=== PATIENT | male | born 1945 | race Caucasian/White ===

== ENCOUNTER 2021-11-16 08:18 | Emergency (ER) | payer MEDICARE, SELFPAY ==
--- NOTE | ~2021-11-16 | XR_ITS ---
XR chest 1V portable DATE: 11/16/2021 09:43 INDICATION: Headache TECHNIQUE: Portable AP chest views on 11/16/2021 at 0 [id number] hours COMPARISON: None FINDINGS: Heart size appears normal. Is mild aortic unfolding. No hilar or mediastinal enlargement. N o pulmonary infiltrate or consolidation, pleural effusion or pulmonary vascular congestion or pneumot horax is detected. There is mild dextroscoliosis of the thoracic spine and degenerative spurring. IMPRESSION: No active cardiopulmonary disease Reviewed, dictated and finalized at location [facility]. A CLERK
--- NOTE | ~2021-11-16 | CT_ITS ---
EXAMINATION: CT brain wo con DATE: 11/16/2021 09:43 INDICATION: Headache. Numbness of fingers. TECHNIQUE: Computed tomography (CT) of the head was performed without intravenous contrast. The mA wa s adjusted according to patient size. Iterative reconstruction technique was employed. Exam dose: 60 5.33 mGy-cm total exam DLP. COMPARISON: None FINDINGS: Vertebral, basilar and bilateral carotid siphon and supraclinoid internal carotid artery ca lcifications. There is nonspecific patchy diminished attenuation of the cerebral white matter, likely due to chroni c small vessel ischemic changes. No intracranial mass lesion or hemorrhage or recent cerebrovascular accident is evident. No midline s hift or mass effect effect. No subdural or epidural hematoma. No fracture or bone destruction of the cranial vault. Mastoid air cells and included paranasal sinuse s are normally developed and aerated. IMPRESSION: Cerebral atherosclerosis and chronic small vessel ischemic changes of the cerebral white matter No acute intracranial finding Reviewed, dictated and finalized at [facility]. Reviewed, dictated and finalized at location [facility]. L HOLE FINISH OPENER
[2021-11-16 08:52] VITALS: BP 191/87; PULSE 74; RESP 20; TEMP 35.7; O2SAT 96
--- NOTE | 2021-11-16 08:59 | ECG_ITS ---
Measurements Intervals [place] Rate: 67 P: 38 OK: 152 QRS: 34 QRSD: 106 T: 1 QT: 399 QTc: 424 Interpretive Statements SINUS RHYTHM BORDERLINE ST-T WAVE ABNORMALITY- INFERIOR LEADS BASELINE ARTIFACT- I, II, III, AVR, AVL, AVF, V1, V3-V6 BORDERLINE ECG Electronically Signed On 11-16-2021 13:40:50 MACHINE COMPOSITOR by Fransisco Kingston D.O.
--- NOTE | 2021-11-16 09:14 | ED.HA ---
HPI - Headache General Chief Complaint: Headache Stated Complaint: L sided headache, numb finger on R hand Time Seen by Provider: 11/16/21 08:22 Source: patient and RN notes reviewed Mode of arrival: ambulatory Limitations: no limitations History of Present Illness MD elicited complaint: headache (mild left MEREDITH, improved with #2 motrins OTC) Onset (ago): hour(s) (14) Onset description: suddenly and while at rest Location: left and frontal Severity: mild Pain scale (0-10): 3 Quality & Timing: dull Exacerbating factors: none Relieving factors: NSAIDs Associated symptoms: numbness (right 4th and 5th fingers.) Treatments prior to arrival: none Related Data Home Medications Medication Instructions Recorded Confirmed glucosamine-chondroitin [Osteo 2 tablet PO TID 11/16/21 11/16/21 Bi-Flex] omega 5-qgw-ubn-fish oil [Fish Oil] 1 cap PO BID 11/16/21 11/16/21 Allergies Allergy/AdvReac Type Severity Reaction Status Date / Time No Known Allergies Allergy Verified 11/16/21 08:59 Review of Systems Review of Systems: All systems reviewed & are unremarkable except as noted in HPI and below Neurologic: Reports headache(s) PMFSH Past Medical History Medical History Head ache Numbness and tingling in right hand Exam Const: General: healthy appearing, no acute distress and alert Nutritional Appearance: well nourished Orientation/consciousness: patient oriented x3 HENMT: Head: normal to inspection Ears: external ears normal and TM's normal bilaterally General nose exam: Normal nares present Face and sinus: normal facial exam Throat: posterior oropharynx normal Other: moist mucous membranes with no acute facial asymmetry Eyes: Conjunctivae: conjunctivae normal Pupils: Equal, round and reactive pupils present EOM: EOMs intact bilaterally Neck: Neck: normal visual inspection Chest: Chest palpation & inspection: normal inspection of the chest Resp: Effort & Inspection: normal respiratory effort Auscultation: clear to auscultation bilaterally Cardio: Rate: regular rate Rhythm: regular rhythm GI: GI Palp: Yes Soft to palpation and No Tenderness to palpation present (GI) Percussion: Yes normal to percussion Auscultation: normal bowel sounds : General: Yes bladder normal to palpation and Yes no CVA tenderness Male General Exam: Yes normal external exam Testes: Testes normal Back/Spine/Pelvis: Back: no CVA tenderness Skin: General skin exam: normal color Rashes: no rashes Neuro: General: patient oriented x3, moves all extremities, no meningeal signs, no focal motor deficits and CN's II-XI intact bilaterally Other: no acute focal neuro deficit. Extrem: General: normal to inspection and no pedal edema Psych: Appearance: grossly normal and well kempt Mental Status: mental status grossly normal Affect: normal affect Attitude: cooperative Thought content: Yes Normal thought content present Course Course Emergency Course: Pt was stable in the ED with less MEREDITH and no neuro deficits. Reevaluation(s) Date: 11/16/21 Time: 09:38 Vital Signs Vital signs: Vital Signs Temperature 35.7 C L 11/16/21 08:52 Pulse Rate 74 11/16/21 08:52 Respiratory Rate 20 11/16/21 08:52 Blood Pressure 191/87 H 11/16/21 08:52 Pulse Oximetry 96 11/16/21 08:52 Temperature 35.7 C L 11/16/21 08:52 Pulse Rate 74 11/16/21 08:52 Respiratory Rate 20 11/16/21 08:52 Blood Pressure 191/87 H 11/16/21 08:52 Pulse Oximetry 96 11/16/21 08:52 MDM - Headache Lab Data Result diagrams: 11/16/21 09:21 11/16/21 09:21 Labs: Lab Results 11/16/21 11/16/21 11/16/21 Range/Units 09:21 09:21 09:21 WBC 6.7 (4.8-10.8) K/mm3 RBC 5.10 (4.70-6.10) M/mm3 Hgb 13.3 (12.4-15.3) g/dL Hct 43.4 (37.0-46.0) % MCV 85.1 (78.0-102.0) fL MCH 26.1 L (27.0-31.0) pg MCHC 30.6 L (32.0-36.0) g/dL RDW 16.9
[2021-11-16 09:25] LABS: Basophils Absolute Auto 0.04 K/mm3 (0.00-0.10); Basophils Percent Auto 0.6 % (0.0-1.0); Eosinophils Absolute Auto 0.02 K/mm3 (0.02-0.50); Eosinophils Percent Auto 0.3 % (1.0-6.0); Hematocrit 43.4 % (37.0-46.0); Hemoglobin 13.3 g/dL (12.4-15.3); Immature Granulocyte Absolute 0.02 K/mm3 (0.00-0.00); Immature Granulocyte Percent A 0.3 % (0.0-0.0); Lymphocytes Absolute Auto 1.05 K/mm3 (1.10-4.50); Lymphocytes Percent Auto 15.6 % (18.0-42.0); Mean Corpuscular HGB Conc 30.6 g/dL (32.0-36.0); Mean Corpuscular Hemoglobin 26.1 pg (27.0-31.0); Mean Corpuscular Volume 85.1 fL (78.0-102.0); Mean Platelet Volume 9.1 fl (8.7-11.0); Monocytes Absolute Auto 0.42 K/mm3 (0.10-0.90); Monocytes Percent Auto 6.2 % (2.0-11.0); Neutrophils Absolute Auto 5.2 K/mm3 (1.7-7.2); Platelet Count Result 249 K/mm3 (150-420); Red Cell Distribution Width 16.9 % (11.6-14.4); White Blood Count 6.7 K/mm3 (4.8-10.8)
[2021-11-16] MEDS: IBUPROFEN 400 MG TABLET 800 MG PO (09:29)
[2021-11-16] MEDS: ASPIRIN 325 MG ENTERIC TABLET PO (09:30)
[2021-11-16] MEDS: cloNIDine HCL 0.2 MG TABLET PO (09:30)
[2021-11-16] MEDS: PANTOPRAZOLE 40 MG TABLET PO (09:30)
[2021-11-16 09:40] LABS: INR 1.1; Partial Thromboplastin Time 24.8 SEC (23.90-30.70); Prothrombin Time 11.4 Seconds (9.50-12.10)
[2021-11-16 09:44] LABS: Lactic Acid Reflex 0.9 mmol/L (0.4-2.0)
[2021-11-16 09:57] LABS: Add Urine Microscopic? YES; Appearance Urine Clear (Clear); Bilirubin Urine Negative (Negative); Blood Urine Negative (Negative); Color Urine Light Yellow (Yellow); Glucose Urine UA Negative (Negative); Ketones Urine Negative (Negative); Leukocyte Esterase Ur Negative (Negative); Nitrate Urine Negative (Negative); Protein Urine 1+ (Negative); Specific Grav Ur >= 1.030 (1.010-1.020); Urobilinogen Urine 0.2 mg/dL (0.2-1.0)
[2021-11-16 10:01] LABS: Alanine Aminotransferase 24 U/L (16-63); Albumin Level 3.6 g/dL (3.4-5.0); Alkaline Phosphatase 47 U/L (46-116); Anion Gap 9 mmol/L (8-16); Aspartate Amino Transferase 14 U/L (15-37); Bilirubin,Total 0.4 mg/dL (0.00-1.00); Blood Urea Nitrogen 18 mg/dL (7-18); Calcium 8.8 mg/dL (8.5-10.1); Carbon Dioxide 28 mmol/L (21-32); Chloride 100 mmol/L (98-108); Estimated CRCL calculation 58 ml/min; Estimated Glomerular Filt Rate 59; Ethanol 5 mg/dL (0-6); Glucose 151 mg/dL (70-99); NT Pro B Type Natriuretic Pept 59 pg/mL (0-450); Osmolality Calculated 288 mOsm/kg (285-295); Potassium 4.1 mmol/L (3.5-5.1); Sodium 137 mmol/L (136-145); Total Protein 7.3 g/dL (6.4-8.2); Troponin I 9.1 ng/L (0.00-60.4)
[2021-11-16 10:05] LABS: Amphetamine Screen Urine Negative (Negative); Bacteria Urine Trace /hpf; Barbiturate Screen Urine Negative (Negative); Benzodiazepines Screen Urine Negative (Negative); Cannabinoid Screen Urine Negative (Negative); Cocaine Screen Urine Negative (Negative); Methadone Screen Urine Negative (Negative); Mucus Urine Few /lpf; Opiate Screen Urine Negative (Negative); Phencyclidine Screen Urine Negative (Negative); RBC Urine 0-2 /hpf (0-2); Squamous Epithelial Cell Urine None seen /hpf (Few); WBC Urine 0-3 /hpf (0-3)
[2021-11-16 10:15] VITALS: BP 168/69; PULSE 63; RESP 20; O2SAT 94
[2021-11-16] MEDS: MORPHINE SULFATE (*CRX) 4 MG/ML INJ IM (10:59)
[2021-11-16] MEDS: ONDANSETRON HCL ODT 4 MG TABLET PO (11:00)
[2021-11-16 11:23] VITALS: BP 175/59; PULSE 62; RESP 20; TEMP 36.1; O2SAT 98
== END 2021-11-16 11:26 | disposition home or self-care (01) ==
PROVIDERS: Emergency Provider Emergency Medicine; PCP Physician Assistant
DX: R51.9 Headache, unspecified (principal); R20.0 Anesthesia of skin
CPT/HCPCS: 36415; 70450; 71045; 80053; 80307; 81001; 83605; 83880; 84484; 85025; 85610; 85730; 93005; 96372; 99283; 99284; A9270; J2270

== ENCOUNTER 2022-04-22 08:51 | Emergency (ER) | payer MEDICARE, SELFPAY ==
--- NOTE | 2022-04-22 08:55 | ECG_ITS ---
Measurements Intervals [place] Rate: 72 P: 33 NC: 151 QRS: 61 QRSD: 119 T: 60 QT: 398 QTc: 437 Interpretive Statements SINUS RHYTHM MODERATE INTRAVENTRICULAR CONDUCTION DELAY [110+ ms QRS DURATION] NONSPECIFIC T-WAVE ABNORMALITY COMPARED TO ECG 11/16/2021 09:25:27 INTRAVENTRICULAR CONDUCTION DELAY NOW PRESENT NO SIGNIFICANT CHANGE Electronically Signed On 04-22-2022 12:55:15 CDT by Tash Garcia M.D.
--- NOTE | 2022-04-22 08:58 | ED.SYNCOPE ---
HPI - Syncope General Chief Complaint: Dizziness Stated Complaint: AMBULANCE Time Seen by Provider: 04/22/22 08:53 History of Present Illness HPI narrative: Pt presents with a eliseo syncopal episode when he stood up today. Pt felt light headed and lost balance and fell by commode. Pt denies injury. Pt tested positive for covid yesterday at home. Pt is not eating or drinking much becauw told him not too. Pt not sure why. Related Data Home Medications Medication Instructions Recorded Confirmed glucosamine-chondroitin 250 mg-200 2 tablet PO TID 11/16/21 04/22/22 mg tablet (Osteo Bi-Flex) omega 2-nmk-our-fish oil 1,000 mg 1 cap PO BID 11/16/21 04/22/22 (120 mg-180 mg) capsule (Fish Oil) cetirizine 10 mg tablet (Zyrtec) 10 mg PO HS 04/22/22 04/22/22 losartan 50 mg tablet 1 tablet PO HS 04/22/22 04/22/22 Allergies Allergy/AdvReac Type Severity Reaction Status Date / Time No Known Allergies Allergy Verified 11/16/21 08:59 Review of Systems Review of Systems: All systems reviewed & are unremarkable except as noted in HPI and below PMFSH Past Medical History Medical History Head ache Numbness and tingling in right hand Exam Const: General: healthy appearing, no acute distress and alert Nutritional Appearance: well nourished Orientation/consciousness: patient oriented x3 Limitations: no limitations HENMT: Head: normal to inspection Mouth: Yes Normal oral and palatal mucosa present Neck: Neck: normal visual inspection Chest: Chest palpation & inspection: normal inspection of the chest Resp: Effort & Inspection: normal respiratory effort Auscultation: clear to auscultation bilaterally Cardio: Rate: regular rate Rhythm: regular rhythm GI: GI Palp: Yes Soft to palpation Auscultation: normal bowel sounds Skin: General skin exam: normal color Rashes: no rashes Neuro: General: patient oriented x3, moves all extremities, no meningeal signs, no focal motor deficits and CN's II-XI intact bilaterally Cranial nerves: Yes Nystagmus not present Speech: normal speech Gait exam (Neuro): Normal gait present Extrem: General: normal to inspection and no clubbing, cyanosis or edema Psych: Mental Status: mental status grossly normal Affect: normal affect Attitude: cooperative Course Vital Signs Vital signs: Vital Signs Pulse Rate 77 04/22/22 09:15 Blood Pressure 129/104 H 04/22/22 09:15 Temperature 98.0 F 04/22/22 09:29 Pulse Rate 81 04/22/22 09:29 Respiratory Rate 20 04/22/22 09:29 Blood Pressure 139/80 04/22/22 09:29 Pulse Oximetry 98 04/22/22 09:29 Oxygen Delivery Room Air 04/22/22 09:29 MDM - Syncope Lab Data Result diagrams: 04/22/22 08:55 04/22/22 08:55 Labs: Lab Results 04/22/22 04/22/22 04/22/22 Range/Units 08:54 08:55 08:55 WBC 7.1 (4.8-10.8) K/mm3 RBC 4.54 L (4.70-6.10) M/mm3 Hgb 14.3 (12.4-15.3) g/dL Hct 43.6 (37.0-46.0) % MCV 96.0 (78.0-102.0) fL MCH 31.5 H (27.0-31.0) pg MCHC 32.8 (32.0-36.0) g/dL RDW 13.5 (11.6-14.4) % Plt Count 176 (150-420) K/mm3 MPV 9.9 (8.7-11.0) fl Immature Gran % (Auto) 0.3 H (0.0-0.0) % Neut % (Auto) 74.5 H (50.0-70.0) % Lymph % (Auto) 10.7 L (18.0-42.0) % [place] % (Auto) 14.0 H (2.0-11.0) % Eos % (Auto) 0.1 L (1.0-6.0) % Baso % (Auto) 0.4 (0.0-1.0) % Lymph # (Auto) 0.76 L (1.10-4.50) K/mm3 [place] # (Auto) 1.00 H (0.10-0.90) K/mm3 Eos # (Auto) 0.01 L (0.02-0.50) K/mm3 Baso # (Auto) 0.03 (0.00-0.10) K/mm3 Abs Immat Gran (auto) 0.02 H (0.00-0.00) K/mm3 Absolute Neuts (auto) 5.3 (1.7-7.2) K/mm3 Absolute Nucleated RBC 0.00 (0.00-0.00) K/mm3 Nucleated RBC % 0.0 (0-0.0) % Sodium Pending Potassium Pending Chloride Pending Carbon Dioxide Pending Anion Gap Pending BUN Pending Creatini
[2022-04-22 09:15] VITALS: BP 129/104; PULSE 77
[2022-04-22 09:16] VITALS: BP 139/80; PULSE 80
[2022-04-22 09:17] VITALS: BP 135/72; PULSE 86
[2022-04-22] MEDS: SODIUM CHLORIDE 0.9% IV 1,000 ML 999 ML IV CONT (09:21)
[2022-04-22 09:24] VITALS: PULSE 74
[2022-04-22 09:24] LABS: Basophils Absolute Auto 0.03 K/mm3 (0.00-0.10); Basophils Percent Auto 0.4 % (0.0-1.0); Eosinophils Absolute Auto 0.01 K/mm3 (0.02-0.50); Eosinophils Percent Auto 0.1 % (1.0-6.0); Hematocrit 43.6 % (37.0-46.0); Hemoglobin 14.3 g/dL (12.4-15.3); Immature Granulocyte Absolute 0.02 K/mm3 (0.00-0.00); Immature Granulocyte Percent A 0.3 % (0.0-0.0); Lymphocytes Absolute Auto 0.76 K/mm3 (1.10-4.50); Lymphocytes Percent Auto 10.7 % (18.0-42.0); Mean Corpuscular HGB Conc 32.8 g/dL (32.0-36.0); Mean Corpuscular Hemoglobin 31.5 pg (27.0-31.0); Mean Platelet Volume 9.9 fl (8.7-11.0); Neutrophils Absolute Auto 5.3 K/mm3 (1.7-7.2); Neutrophils Percent Auto 74.5 % (50.0-70.0); Platelet Count Result 176 K/mm3 (150-420); Red Blood Count 4.54 M/mm3 (4.70-6.10); Red Cell Distribution Width 13.5 % (11.6-14.4); White Blood Count 7.1 K/mm3 (4.8-10.8)
[2022-04-22 09:29] VITALS: BP 139/80; PULSE 81; RESP 20; TEMP 36.7; O2SAT 98
[2022-04-22 09:46] LABS: Alanine Aminotransferase 24 U/L (16-63); Albumin Level 3.3 g/dL (3.4-5.0); Alkaline Phosphatase 48 U/L (46-116); Bilirubin,Total 0.6 mg/dL (0.00-1.00); Blood Urea Nitrogen 14 mg/dL (7-18); Calcium 8.7 mg/dL (8.5-10.1); Carbon Dioxide 30 mmol/L (21-32); Estimated Glomerular Filt Rate > 60; Glucose 132 mg/dL (70-99); Total Protein 7.9 g/dL (6.4-8.2)
[2022-04-22 10:01] LABS: SARS-CoV-2 RNA PCR Positive (Negative)
[2022-04-22 10:36] LABS: Anion Gap 6 mmol/L (8-16); Aspartate Amino Transferase 21 U/L (15-37); Chloride 104 mmol/L (98-108); Osmolality Calculated 292 mOsm/kg (285-295); Potassium 4.6 mmol/L (3.5-5.1); Sodium 140 mmol/L (136-145)
[2022-04-22 11:15] VITALS: BP 136/76; PULSE 77; RESP 20; TEMP 36.7; O2SAT 98
--- NOTE | 2022-04-22 14:41 | PC.NURSE ---
pt pharmacy of choice doesnt have medication paxlovid, rx called to [facility], pt notified.
== END 2022-04-22 11:29 | disposition home or self-care (01) ==
PROVIDERS: Emergency Provider Emergency Medicine; PCP Family Medicine
DX: U07.1 COVID-19 (principal); E86.0 Dehydration
CPT/HCPCS: 36415; 80053; 83735; 85025; 93005; 96360; 99284; C9803; J7030; U0003; U0005

== ENCOUNTER 2022-07-02 10:57 | Emergency (ER) | payer MEDICARE, SELFPAY ==
[2022-07-02 11:11] VITALS: BP 172/88; PULSE 72; RESP 20; TEMP 36.2; O2SAT 97
--- NOTE | 2022-07-02 11:50 | ED.EYEPROB ---
HPI - Eye Problem General Chief complaint: Eye Problems Stated complaint: Blood shot eye/headache Time Seen by Provider: 07/02/22 10:58 Source: patient Mode of arrival: ambulatory Limitations: no limitations History of Present Illness HPI Narrative: this is a 76-year-old gentleman that presents with left eye discomfort with some cut subconjunctival injection and redness with a tearing with visual loss no blurry vision does complain of some pain and discomfort, with no known injury no known foreign body in his left eye. Otherwise there is no nasal congestion no fever or chills no headache. There is no nausea vomiting no photophobia. chief complaint: eye pain and eye redness Onset (ago): day(s) Onset description: gradual Duration: constant Location: left eye Eye Symptoms: redness and pain Place: home Mechanism: none Severity: moderate Related Data Home Medications Medication Instructions Recorded Confirmed glucosamine-chondroitin 250 mg-200 2 tablet PO DAILY 11/16/21 04/22/22 mg tablet (Osteo Bi-Flex) omega 6-nyc-ezf-fish oil 1,000 mg 1 cap PO BID 11/16/21 04/22/22 (120 mg-180 mg) capsule (Fish Oil) cetirizine 10 mg tablet (Zyrtec) 10 mg PO HS 04/22/22 04/22/22 losartan 50 mg tablet 1 tablet PO HS 04/22/22 04/22/22 ibuprofen 800 mg tablet 600 mg PO TID PRN Pain 07/02/22 Allergies Allergy/AdvReac Type Severity Reaction Status Date / Time No Known Allergies Allergy Verified 11/16/21 08:59 Review of Systems Review of Systems: All systems reviewed & are unremarkable except as noted in HPI and below [facility] Past Medical History Medical History Head ache Numbness and tingling in right hand Exam Const: General: healthy appearing and no acute distress HENMT: Head: normal to inspection General nose exam: Normal external nose present Face and sinus: normal facial exam Mouth: Yes Normal oral and palatal mucosa present Eyes: Conjunctivae: conjunctival abnormality EOM: EOMs intact bilaterally Other: Subconjunctival injection Neck: Neck: normal visual inspection, no lymphadenopathy and no meningeal signs Chest: Chest palpation & inspection: normal inspection of the chest Resp: Effort & Inspection: normal respiratory effort Auscultation: clear to auscultation bilaterally Cardio: Rate: regular rate Rhythm: regular rhythm GI: GI Palp: Yes Soft to palpation Auscultation: normal bowel sounds Back/Spine/Pelvis: Back: no CVA tenderness Skin: General skin exam: normal color Rashes: no rashes Neuro: General: patient oriented x3 and moves all extremities Extrem: General: normal to inspection Psych: Mental Status: mental status grossly normal Affect: normal affect Course Course Emergency Course: tetracaine was used to numb the of the left eye and with magnification used and did not find any foreign objects fluorescein stain was used and there is no corneal abrasion. Vital Signs Vital signs: Vital Signs Temperature 36.2 C L 07/02/22 11:11 Pulse Rate 72 07/02/22 11:11 Respiratory Rate 20 07/02/22 11:11 Blood Pressure 172/88 H 07/02/22 11:11 Pulse Oximetry 97 07/02/22 11:11 Oxygen Delivery Room Air 07/02/22 11:11 Temperature 36.2 C L 07/02/22 11:11 Pulse Rate 72 07/02/22 11:11 Respiratory Rate 20 07/02/22 11:11 Blood Pressure 172/88 H 07/02/22 11:11 Pulse Oximetry 97 07/02/22 11:11 Oxygen Delivery Room Air 07/02/22 11:11 Critical Care Time Critical Care Time Critical Care Time: No Discharge Plan Discharge Clinical Impression: Bacterial conjunctivitis Patient Disposition: Home, Self-Care Condition: Stable Instructions: Antibiotic Form, Conjunctivitis (ED) Additional Instructions: take medicine as prescribed and follow-up with primary care physician for possible referral to Ophthalmology if symptoms persist or worsen. Prescriptions: New ciprofloxacin HCl 0.3 % kam
[2022-07-02 12:06] VITALS: BP 150/93; PULSE 70; RESP 18; TEMP 36.4; O2SAT 97
--- NOTE | 2022-07-02 13:17 | PC.NURSE ---
On 07/02/22, the student, [GAYLA CHAVEZ ], provided care and completed [facility] documentation on this patient. I have reviewed the student's documentation and agree with the findings.
== END 2022-07-02 12:10 | disposition home or self-care (01) ==
PROVIDERS: Emergency Provider Emergency Medicine; PCP Family Medicine
DX: H10.89 Other conjunctivitis (principal)
CPT/HCPCS: 99283; A9270

== ENCOUNTER 2024-10-05 20:27 | Inpatient (IN) | payer MEDICARE, SELFPAY ==
[2024-10-05] VITALS (8 sets, daily range): BP systolic 141–171; BP diastolic 78–119; PULSE 64–122; RESP 19–24; TEMP 36.4–36.8; O2SAT 91–96; BMI 34.0
--- NOTE | ~2024-10-05 | XR_ITS ---
EXAMINATION: XR chest 1V portable DATE: 10/05/2024 20:55 INDICATION: ST elevation myocardial infarction. TECHNIQUE: A single frontal view of the chest was obtained. COMPARISON: Chest single view 11/16/2021 FINDINGS: There is mild atelectasis at left lung base. No pleural effusion or pneumothorax. The heart size is normal. IMPRESSION: 1. Mild atelectasis at left lung base. Reviewed, dictated and finalized at location A. S TUTOR
--- NOTE | ~2024-10-05 | MR_ITS ---
MRI of the brain Clinical History: Confusion Technique: Axial and sagittal T1-weighted images were acquired. These were followed by axial T2-weigh jalil, diffusion weighted, gradient, and FLAIR images. Findings: There is a 7 mm focal area of restricted diffusion in the left posterior parietal lobe, com patible with a small focal acute infarct. No intracranial hemorrhage or mass lesion evident. There is extensive chronic white matter disease throughout the periventricular white matter otherwise. Ventricles and subarachnoid spaces are mildly dilated. Orbits are unremarkable. Paranasal sinuses and mastoid air cells are clear. Major intracranial flow voids are intact. Sagittal midline structures are intact. IMPRESSION: 7 mm acute infarct in the left posterior parietal lobe. Extensive chronic microvascular ischemic change and moderate generalized atrophy. Reviewed, dictated and finalized at [facility]. ALER IMPRESSION: 7 mm acute infarct in the left posterior parietal lobe. Extensive chronic microvascular ischemic change and moderate generalized atroph y.
--- NOTE | ~2024-10-05 | US_ITS ---
Procedure: Duplex Doppler examination of the bilateral carotids. Indication: Stroke Technique: Real time, color-flow and pulse wave Doppler examination of the bilateral carotids was performed. Findings: Hamilton scale ultrasonography of the right neck demonstrated small calcified plaque at the right carotid bulb. There was demonstration of normal color-flow and Doppler waveforms within the right common, in ternal and external carotid arteries. The peak systolic velocities in the right common, internal and external carotid arteries were demonstrated to be 97 cm/sec, 89 cm/sec and 67 cm/sec respectively. Th e right ICA/CCA ratio was 1.1.The proximal right internal carotid artery demonstrates 0% stenosis rel ative to the normal distal artery lumen diameter. Hamilton scale sonography of the left neck demonstrated heterogeneous plaque within the left proximal ICA . There was demonstration of normal color-flow and wave forms within the left common, internal and ex ternal carotid arteries. The peak systolic velocities in the left common, internal and external carot id arteries were demonstrated to be 145cm/sec, 72 cm/sec and 63 cm/sec respectively. The left ICA/CCA ratio was 1.0. The proximal left internal carotid artery demonstrates 0% stenosis relative to the no rmal distal artery lumen diameter. There was antegrade flow demonstrated in the bilateral vertebral arteries. Impression: No hemodynamically significant stenosis of the bilateral internal carotid arteries. Antegrade flow in the bilateral vertebral arteries. Note: The methodology used is an indirect measurement validated against a direct method (such as the NASCET criteria) that compares diameters at the stenosis to the distal ICA. Reviewed, dictated and finalized at location . TENING MACHINE OPERATOR Impression: No hemodynamically significant stenosis of the bilateral internal carotid arter ies. Antegrade flow in the bilateral vertebral arteries. Note: The methodology used is an indirect measurement validated against a direct meth od (such as the NASCET criteria) that compares diameters at the stenosis to the distal ICA.
--- NOTE | ~2024-10-05 | CT_ITS ---
EXAMINATION: CT brain wo con DATE: 10/07/2024 15:18 INDICATION: confusion . TECHNIQUE: Computed tomography (CT) of the head was performed without intravenous contrast. The mA wa s adjusted according to patient size. Iterative reconstruction technique was employed. The dose-lengt h product was 681.00 mGy-cm. COMPARISON: 11/16/2021. FINDINGS: No acute intracranial hemorrhage or extra-axial fluid collection. No hydrocephalus, mass, or herniation. No acute ischemic infarct. Unremarkable dural venous sinus attenuation. No acute osseous abnormality. The aerated spaces are clear. Moderate atrophy and chronic white matter change. Atherosclerotic intracranial calcification. Bilater al lens replacements. IMPRESSION: No acute intracranial process. Reviewed, dictated and finalized at location K. LE HAND
--- NOTE | 2024-10-05 20:32 | ECG_ITS ---
Test Date: 2024-10-05 20:27:20 Measurements Intervals [place] Rate: 64 P: 0 CT: 0 QRS: 80 QRSD: 110 T: 90 QT: 416 QTc: 431 Interpretive Statements ATRIAL FIBRILLATION ST ELEVATION, CONSIDER INFERIOR INJURY [MARKED ST ELEVATION W/O NORMALLY INFLECTED T-WAVE IN II/aVF] ACUTE [place] No previous ECG available for comparison Electronically Signed On 10-06-2024 18:34:43 HEAD SETTER by Nyla Jolley M.D.
[2024-10-05] MEDS: HEPARIN SODIUM 5,000 UNITS/ML VIAL 4000 UNITS IV PUSH (20:49)
[2024-10-05] MEDS: SODIUM CHLORIDE 0.9% IV 1,000 ML 999 ML IV CONT (20:50)
[2024-10-05] MEDS: HEPARIN SOD/D5W 100 UNITS/ML 25,000 UNITS/250 ML BAG 10 UNITS IV CONT (20:50)
[2024-10-05 20:53] LABS: Basophils Absolute Auto 0.1 K/mm3 (0.0-0.1); Basophils Percent Auto 0.7 % (0.2-1.2); Eosinophils Absolute Auto 0.1 K/mm3 (0-0.3); Eosinophils Percent Auto 0.9 % (0-4.4); Hematocrit 45.3 % (42.0-52.0); Immature Granulocyte Absolute 0.03 K/mm3 (0.00-0.031); Immature Granulocyte Percent A 0.3 % (0-0.5); Lymphocytes Absolute Auto 2.02 K/mm3 (0.9-3.2); Lymphocytes Percent Auto 20.8 % (18.3-44.2); Mean Corpuscular HGB Conc 33.1 g/dl (32-36); Mean Corpuscular Hemoglobin 31.9 pg (26-34); Mean Corpuscular Volume 96.4 fl (80-100); Mean Platelet Volume 9.6 fl (7.4-10.4); Monocytes Absolute Auto 0.8 K/mm3 (0.1-0.6); Monocytes Percent Auto 8.3 % (2.6-8.5); Neutrophils Absolute Auto 6.7 K/mm3 (1.3-6.7); Platelet Count Result 247 k/mm3 (150-375); Red Cell Distribution Width 13.5 % (11.5-14.5); White Blood Count 9.7 K/mm3 (4.5-10.0)
[2024-10-05 20:59] LABS: INR 1.1; Prothrombin Time 14.3 Seconds (11.1-14.7)
[2024-10-05 21:00] LABS: Partial Thromboplastin Time 25.9 Seconds (22.3-36.8)
--- NOTE | 2024-10-05 21:11 | PM.IMHP ---
H&P: HPI History of Present Illness Date/Time: 10/05/24 21:11 Chief Complaint: Chest pain Narrative: 78-year-old male with hypertension. No known prior cardiac history. Patient presented to [facility] Emergency Room via EMS with complaints of Severe chest pain that started about 3 hours prior to arrival. He reported dyspnea, no palpitations dizziness or syncope. Initial EKG on my personal interpretation showed sinus rhythm, ST-elevation in the inferior leads with reciprocal ST depression. Cardiac catheterization lab was activated for primary PCI. Patient received aspirin and 4000 units of heparin in the ER. Review of Systems Review of Systems: General: Negative for fever, chills, fatigue Psychological: Negative for anxiety, depression Ophthalmic: negative for loss of vision ENT: Negative for epistaxis, headaches Allergy and immunology: Negative for hives, nasal congestion Hematologic and lymphatic: Negative for overt bleeding problems Endocrine: Negative for hot flashes, palpitations Respiratory: Negative for cough, hemoptysis Cardiovascular: positive for severe chest pain Gastrointestinal: Negative for abdominal pain, nausea, vomiting, hematochezia Musculoskeletal: positive for joint pains Neurological: Negative for weakness Dermatological: Negative for rash, skin discoloration PMFSH Past Medical History Medical History (Updated 10/05/24 @ 21:18 by Galindo Sultana MD) Hypertension Numbness and tingling in right hand Head ache Social History Social History (Updated 10/05/24 @ 21:18 by Galindo Sultana MD) Smoking status: Never smoker Alcohol intake: unknown Substance use: never Living arrangements: with family Meds Home Medications and Allergies Home Medications ?Medication ?Instructions ?Recorded ?Confirmed ?Type glucosamine-chondroitin 250 mg-200 2 tablet PO DAILY 11/16/21 07/02/22 History mg tablet (Osteo Bi-Flex) omega 9-znd-fcq-fish oil 1,000 mg 1 cap PO BID 11/16/21 07/02/22 History (120 mg-180 mg) capsule (Fish Oil) cetirizine 10 mg tablet (Zyrtec) 10 mg PO HS 04/22/22 07/02/22 History losartan 50 mg tablet 1 tablet PO HS 04/22/22 07/02/22 History ciprofloxacin HCl 0.3 % eye drops See Rx Instructions EACH EYE 07/02/22 Rx .COMPLEX 5 days #5 mL ibuprofen 800 mg tablet 600 mg PO TID PRN Pain 07/02/22 07/02/22 History tramadol 50 mg tablet (Ultram) 50 mg PO HS #20 tabs 07/02/22 Rx Allergies Allergy/AdvReac Type Severity Reaction Status Date / Time No Known Allergies Allergy Verified 11/16/21 08:59 Vital Signs Vital Signs - 24 hr 10/05/24 20:18 10/05/24 20:29 10/05/24 20:29 Temperature 36.4 C Pulse Rate 82 72 Respiratory Rate 21 H Blood Pressure 151/78 H Pulse Oximetry 96 96 Oxygen Delivery Room Air Room Air 10/05/24 20:29 Temperature 36.6 C Pulse Rate 64 Respiratory Rate 21 H Blood Pressure 141/88 H Pulse Oximetry 96 Oxygen Delivery Exam Narrative: PHYSICAL EXAMINATION: GENERAL: Alert, appears in mild distress due to chest pain MENTAL STATUS: anxious EYES: Extraocular movements intact, no pallor EARS: External ears appear normal, hearing grossly normal NOSE: Normal and patent, no discharge MOUTH: Mucous membranes moist, tongue normal NECK: Supple, no JVD CHEST: Good respiratory effort, clear to auscultation HEART: Normal rate, regular rhythm with ectopic beats, S4 gallop ABDOMEN: Soft, nontender NEUROLOGICAL: Alert, oriented, normal speech, no gross motor deficits MUSCULOSKELETAL: No major deformity, no amputation EXTREMITIES: No pedal edema, no clubbing, no cyanosis SKIN: no rash on the exposed area, no cyanosis PSYCHIATRIC: Normal mood, appropriate affect H&P: Results Labs Labs: Short CBC 10/05/24 Range/Units 20:38 WBC 9.7 (4.5-10.0) K/mm3 Hgb 15.0 (14.0-18.0) g/dL Hct 45.3 (42.0-52.0) % Plt Count 247 (150-375) k/mm3 Assessment and Plan Assessment and plan (1) ST elevation (STEMI) myocardial infarction: Code(s): I21.3 - ST elevation (STEMI) myocardial infarction of unspecified site Status: Acute Assessment and Plan: 78-year-old male with past medical history of hypertension, no known prior cardiac history presents with 3 hour history of chest pain. EKG shows sinus rhythm, inferior ST elevation with reciprocal ST depression. Cardiac filling station laborer activated for primary PCI. status post primary PCI/ ROBERT x2 mid-distal RCA; POBA RPL branch. Plan 1. Dual antiplatelet therapy with aspirin and ticagrelor, high-dose statin. 2. Assessment of left coronary system/left main coronary artery at a later date. 3. Echo with Doppler to assess LV function and rule out any major structural heart disease. Labs including CMP, CBC, serial troponins, lipid panel, HbA1c. 4. Admit ICU, monitor on telemetry for any postop arrhythmias. 5. Patient, his family and ICU physician updated.
[2024-10-05 21:15] LABS: Alanine Aminotransferase 27 U/L (6-50); Albumin Level 4.3 g/dL (3.5-5.1); Alkaline Phosphatase 47 U/L (38-126); Anion Gap 7 mmol/L (4-12); Aspartate Amino Transferase 36 U/L (17-59); Bilirubin,Total 0.5 mg/dL (0.2-1.3); Blood Urea Nitrogen 24 mg/dL (9-20); Calcium 9.1 mg/dL (8.4-10.2); Carbon Dioxide 27 mmol/L (22-30); Chloride 102 mmol/L (98-107); Cholesterol 218 mg/dL (0-200); Estimated CRCL calculation 50 ml/min; Estimated Glomerular Filt Rate 53; Glucose 185 mg/dL (65-110); HDL Direct 37 mg/dL; Potassium 4.1 mmol/L (3.4-5.0); Sodium 136 mmol/L (137-145); Triglycerides 198 mg/dL (<150)
[2024-10-05 21:26] LABS: LDL Cholesterol Direct 134 mg/dL
[2024-10-05 21:30] LABS: Troponin I 0.026 ng/mL (0.000-0.034)
--- NOTE | 2024-10-05 22:32 | P.PCNCC_ITS ---
Cardiac Cath Procedure Note Date of procedure:: 10/05/24 Performing physician:: Galindo Sultana MD Procedure Procedure performed:: EMERGENT CARDIAC CATHETERIZATION AND PRIMARY PERCUTANEOUS CORONARY INTERVENTION REPORT DATE OF PROCEDURE: 10/05/2024 INDICATION FOR PROCEDURE: ACUTE CORONARY SYNDROME-INFERIOR ST-ELEVATION MYOCARDIAL INFARCTION BRIEF CLINICAL HISTORY: 78-year-old male with hypertension. No known prior cardiac history. Patient presented to [facility] via EMS with complaints of Severe chest pain that started about 3 hours prior to arrival. He reported dyspnea, no palpitations dizziness or syncope. Initial EKG showed sinus rhythm, ST-elevation in the inferior leads with reciprocal ST depression. Cardiac catheterization lab was activated for primary PCI. Patient received aspirin and 4000 units of heparin in the ER. PROCEDURES PERFORMED: 1. Selective left and right coronary angiogram 2. PRIMARY PERCUTANEOUS coronary intervention- a) balloon angioplasty and stenting of subtotal occlusion of mid -distal RCA using 4.0 x 30 mm and 3.0 x 26 mm Biotronik sirolimus eluting stents in an overlapping fashion; b) balloon angioplasty of subtotal occlusion in the RPL branch c) intravascular ultrasound -IVUS of right coronary artery 3. Deployment of Mynx hemostatic device 4. Moderate sedation-CPT code 05427 and beyond MODERATE SEDATION: patient was somewhat somnolent; conscious sedation was therefore not used. Procedure was done under local anesthesia with lidocaine. ACCESS SITE: Right common femoral artery PROCEDURE NOTE: After obtaining informed consent, patient was emergently brought to catheterization lab and prepped and draped in a usual sterile manner. After local anesthesia with lidocaine, right common femoral artery access was taken with micropuncture needle followed by insertion of a 6 [place] sheath. Selective left and right coronary angiogram was performed using 5 [place] JL4 and 6 [place] JR4 guide catheters respectively. Orthogonal views were taken. After completion of procedure, vascular closure device was deployed with good hemostasis. Patient tolerated procedure well without any immediate procedure related complications. FINDINGS: LEFT MAIN CORONARY: large caliber vessel with about 50% narrowing at the ostial -proximal segment in the tortuous bend. LEFT ANTERIOR DESCENDING ARTERY: Lad is a medium large caliber vessel in the proximal segment with mild diffuse disease; becomes tortuous in the mid -distal segment, tapers distally. Diagonal branch is medium caliber very tortuous vessel. LEFT CIRCUMFLEX ARTERY: Medium caliber, mild disease in the proximal segment, gives rise to very tortuous OM branches without significant focal stenosis. RIGHT CORONARY ARTERY: Right coronary artery is a large caliber, dominant tortuous vessel. There is mild diffuse plaque in the proximal and upper part of the mid segment. There is complex ulcerated and calcific subtotal occlusion in the mid-distal segment. PDA is a small to medium caliber vessel, PLV branch is a medium caliber vessel with significant tortuosity and 99% stenosis in the tortuous bend in the mid segment. LEFT VENTRICULOGRAM: Attempted, not performed. HEMODYNAMIC ASSESSMENT: Opening pressure 142/93 , closing pressure 150/97 mmHg . INTERVENTION REPORT: patient had already received aspirin, was given loading dose of ticagrelor in the construction or leak gang laborer. Bivalirudin was used for procedural anticoagulation. RCA ostium was selectively engaged using 6 [place] JR4 guide catheter and initially which did not provide optimal support, and was there for later changed to 6 [place] AL1 guide catheter. The complex subtotal occlusion in the mid-distal segment could not be crossed using 0.014 supervising airplane pilot 150 wire initially, which was switched to 0.014 whisper wire. After several attempts, the stenosis was crossed into the distal RCA and RPL branch. Next, balloon angioplasty was initially performed using a 2.0 x 10 mm balloon. Balloon ang ioplasty was performed in the RPL branch using 2.0 x 10 mm noncompliant balloon with suboptimal results. After this, attention was shifted again to complex stenosis in the mid -distal RCA. Next, angioplasty was performed using a 3.0 x 20 mm balloon at optimal pressures in the entire diseased segment. After this, IVUS was performed using a [place] catheter which showed severe disease in the mid-distal RCA with reference diameter approx. ranging between 3.5 to 4.5 mm . Next, a 3.0 x 26 mm Biotronik sirolimus eluting stent was deployed in the distal segment. Next, 4.0 x 30 mm Biotronik sirolimus eluting stent was deployed in the mid segment and an overlapping fashion with the previously placed distal segment. Postdilation was performed using 4.5 x 30 mm noncompliant balloon. IC nitroglycerin was given . Final angiogram showed shinto of flow in the RCA, however, no significant angiographic improvement in the RPL branch with balloon angioplasty. The vessel is very to rtuous, and therefore stenting was not performed in that segment. Patient's chest pain significantly improved post intervention. Mynx vascular closure device was used for local hemostasis. Patient transferred for to ICU in a stable but guarded condition. CONCLUSIONS: 1. CAD- a) Ulcerated, calcific 99% stenosis mid-distal is RCA; 99% stenosis in the mid segment of tortuous RPL branch; b) about 50% stenosis in the ostium of left main coronary artery 2. Complex primary PCI- PTCA/stenting of complex, ulcerated and calcified subtotal stenosis in the mid -distal RCA using 4.0 x 30 mm and 3.0 x 26 mm Biotronik sirolimus eluting stents in an overlapping fashion; POBA RPL branch. PLAN/RECOMMENDATIONS: 1. Dual antiplatelet therapy with aspirin and ticagrelor, high-dose statin. 2. Assessment of left coronary system/left main coronary artery at a later date. 3. Echo with Doppler to assess LV function and rule out any major structural heart disease. Labs including CMP, CBC, serial troponins, lipid panel, HbA1c. 4. Admit ICU, monitor on telemetry for any postop arrhythmias. This document was completed by using M*Modal Fluency Direct speech recognition software, therefore, joint sealer variances may occur.
--- NOTE | 2024-10-05 22:40 | PC.NURSE ---
This nurse received report from Kaitlynn DIAZ on this patient transferring to ICU.
--- NOTE | 2024-10-05 22:50 | PC.NURSE ---
This patient, Иван Briceno, was admitted to Intensive Care Unit-10. Patient/family oriented to hospital policies and general routines including ID bracelet, bed and alarms, visiting hours, pain management, procedures, bathroom and other care routines, personal items, smoking policy, room service/diet, and visiting hours. Information on how to activate the Rapid Response Team has been discussed. Patient/Family are encouraged to report perceived risks to care and to ask questions if they do not understand what they are told or what they should do.
--- NOTE | 2024-10-05 22:59 | ECG_ITS ---
Test Date: 2024-10-05 23:15:27 Measurements Intervals [place] Rate: 124 P: 0 GA: 0 QRS: 75 QRSD: 101 T: 94 QT: 261 QTc: 376 Interpretive Statements ATRIAL FIBRILLATION WITH RAPID VENTRICULAR RESPONSE INFERIOR MYOCARDIAL INFARCTION [40+ ms Q WAVE AND/OR ST/T ABNORMALITY IN II/aVF], POSSIBLY ACUTE ACUTE FL Compared to ECG 10/05/2024 20:27:20t Myocardial infarct finding still present Electronically Signed On 10-06-2024 18:35:53 WARP KNITTING MACHINE OPERATOR by Nyla Jolley M.D.
[2024-10-05] MEDS: METOPROLOL TARTRATE INJ 5 MG/5 ML VIAL IV PUSH (23:11)
[2024-10-05] MEDS: SODIUM CHLORIDE 0.9% IV 1,000 ML 125 ML IV CONT (23:29)
[2024-10-05] MEDS: ATORVASTATIN 40 MG TABLET 80 MG PO (23:29)
[2024-10-06] VITALS (18 sets, daily range): BP systolic 138–173; BP diastolic 77–117; PULSE 70–106; RESP 17–23; TEMP 36.5–36.8; O2SAT 92–100
--- NOTE | 2024-10-06 | ECHO_ITS ---
Patient Info Name: Иван Briceno Age: 78 years : 1945 Gender: Male Ht: 70 in Wt: 237 lbs BSA: 2.34 m2 HR: 76 bpm BP: 161 / 112 mmHg Technical Quality: Poor Exam Date: 10/06/2024 9:57 AM Exam Location: Echo Lab Patient Status: Inpatient Admit Date: 10/05/2024 Staff Ordering Physician: Galindo Sultana MD Public Relations Studies Director: Mindy Gamez RDCS Attending Provider: Galindo Sultana MD Exam Type: CA echo dop color flow w con Study Info Indications - INFERIOR ST-ELEVATION TX Complete two-dimensional, color flow and Doppler transthoracic echocardiogram is performed with contrast to opacify the left ventricle and to improve the deliniation of the left ventricle endocardial borders. Contrast/Agitated Saline Contrast/Ag. Saline: Definity Amount: 2.00 ml Existing IV Access: Yes Reason for Poor Study: poor echocardiographic windows Summary 1. Left ventricular wall thickness is moderately increased. 2. Left ventricular systolic function is mildly reduced with an ejection fraction by Biplane Method of Discs of 4045 %. 3. The left ventricular diastolic function is grade I diastolic dysfunction. 4. Left ventricular wall motion shows akinesis of inf wall. 5. Right ventricular chamber dimension is normal. 6. Right ventricular systolic function is reduced. 7. There is trace mitral valve regurgitation. 8. No pulmonary hypertension, estimated pulmonary arterial systolic pressure is 35 mmHg. 9. Dilated inferior vena cava with >50% collapse upon inspiration consistent with elevated right atrial pressure, 15 mmHg. Left Ventricle Left ventricular chamber dimension is normal. Left ventricular wall thickness is moderately increased. Left ventricular systolic function is mildly reduced with an ejection fraction by Biplane Method of Discs of 4045 %. The left ventricular diastolic function is grade I diastolic dysfunction. Left ventricular wall motion shows akinesis of inf wall. Right Ventricle Right ventricular chamber dimension is normal. Right ventricular systolic function is reduced. Left Atria Left atrial chamber dimension is normal. Right Atria Right atrial chamber dimension is normal. Aortic Valve The aortic valve is trileaflet. There is no aortic valve regurgitation. There is no aortic valve stenosis with a peak velocity of 110.72 cm/s, mean gradient of 3 mmHg, and aortic valve area of 3.34 cm2. Mitral Valve There is trace mitral valve regurgitation. Tricuspid Valve There is mild tricuspid valve regurgitation. No pulmonary hypertension, estimated pulmonary arterial systolic pressure is 35 mmHg. Inferior Vena Cava Dilated inferior vena cava with >50% collapse upon inspiration consistent with elevated right atrial pressure, 15 mmHg. Aorta The prox ascending aorta size is normal. The ascending aorta arch size is normal. Left Ventricular Outflow Tract Name Value Normal LVOT 2D LVOT Diameter 2.29 cm LVOT Doppler LVOT Peak Gradient 3 mmHg LVOT Mean Gradient 2 mmHg LVOT VTI 17.65 cm LVOT VTI/AV VTI Ratio 0.81 LVOT Stroke Volume 72.65 ml LVOT CO 5.16 l/min LVOT CI 2.20 L/min/m2 Pulmonic Valve Name Value Normal RVOT Doppler RVOT Peak Gradient 2 mmHg PV Doppler PV Peak Gradient 2 mmHg Mitral Valve Name Value Normal MV Doppler MV Decel [place] 228.64 cm/s2 MV PHT 0 s MV Area (PHT) 3.29 cm2 4.00-5.00 MV Diastolic Function MV E Peak Velocity 52.66 cm/s MV A Peak Velocity 64.97 cm/s MV E/A 0.81 MV Decel Time 0 s MV Annular TDI MV E/e' (Septal) 8.97 <=8.00 MV E/e' (Lateral) 5.80 <=8.00 MV E/e' (Average) 7.39 Tricuspid Valve Name Value Normal TV Regurgitation Doppler TR Peak Velocity 223.59 cm/s TR Peak Gradient 20 mmHg Estimated PAP/RSVP RA Pressure 15 mmHg <=5 PA Systolic Pressure 35 mmHg <36 RV Systolic Pressure 35 mmHg <36 Aorta Name Value Normal Ascending Aorta Ao Root Diameter (MM) 3.86 cm Ao Root Diam Index (MM) 1.65 cm/m2 Aortic Valve Name Value Normal AV Doppler AV Peak Velocity 110.72 cm/s AV Peak Gradient 5 mmHg AV Mean Gradient 3 mmHg AV VTI 21.75 cm AV Area (Cont Eq VTI) 3.34 cm2 >=3.00 AV Area (Cont Eq Nick) 3.44 cm2 AV Regurgitation 2D LVOT Area 4.12 cm2 Ventricles Name Value Normal LV Dimensions 2D/MM IVS Diastolic Thickness (2D) 1.21 cm 0.60-1.00 LVID Diastole (2D) 4.26 cm 4.20-5.80 LVIW Diastolic Thickness (2D) 2.31 cm 0.60-1.00 LVID Systole (2D) 3.31 cm 2.50-4.00 LVOT Diameter 2.29 cm LV Mass (2D Cubed) 327.81 g 88.00-224.00 LV Mass Index (2D Cubed) 0.01 g/cm2 0.00-0.01 Relative Wall Thickness (2D) 1.08 LV Fractional Shortening/Ejection Fraction 2D/MM LV Fractional Shortening (2D) 24 % 25-43 LV EF (2D Teicholz) 48 % 52-72 LV Diastolic Volume (4C MOD) 104.73 ml LV EF (4C MOD) 33 % LV Diastolic Volume (2C MOD) 75.64 ml LV EF (2C MOD) 40 % LV Diastolic Volume (BP MOD) 93.40 ml 62.00-150.00 LV Diastolic Volume Index (BP MOD) 0.04 l/m2 0.03-0.07 LV Systolic Volume (BP MOD) 61.06 ml 21.00-61.00 LV Systolic Volume Index (BP MOD) 0.03 l/m2 0.01-0.03 LV EF (BP MOD) 4,045 % 52-72 LV Diastolic Length (4C) 8.02 cm LV Systolic Length (4C) 7.67 cm LV Stroke Volume (4C MOD) 35.08 ml Atria Name Value Normal LA Dimensions LA Dimension (MM) 3.57 cm 3.00-4.10 LA Volume (4C A-L) 34.44 ml LA Volume (BP A-L) 49.28 ml RA Dimensions RA Area (4C) 16.28 cm2 <=18.00 Report Signatures
--- NOTE | 2024-10-06 01:41 | ED.CHESTPAIN ---
HPI - Chest Pain General Chief Complaint: Chest Pain Stated Complaint: chest pain History of Present Illness HPI narrative: 78-year-old male with a past medical history including hypertension presenting to the emergency room with chief complaint of midsternal chest pain. He presents via EMS after he called the ambulance. EMS shows a STEMI in the inferior leads with reciprocal depressions. Patient has never had a heart attack before according to himself and states he has never had any cardiac procedures or cardiac catheterizations. He received 325 mg of aspirin, 2 sublingual nitroglycerins and 50 mcg of fentanyl which did improve his pain. Endorses no shortness of breath, nausea, vomiting, back pain, fatigue, recent injuries or illnesses. Onset of symptoms was just prior to calling EMS and total approximately 30 minutes prior to arrival. EKG was transmitted to the ED and independently reviewed and I interpret a inferior STEMI and a STEMI code was activated. Patient was brought back as a medical resuscitation at this time to room 6. Related Data Home Medications ?Medication ?Instructions ?Recorded ?Confirmed ?Last Taken ?Type glucosamine-chondroitin 250 mg-200 2 tablet PO DAILY 11/16/21 10/05/24 10/05/24 History mg tablet (Osteo Bi-Flex) omega 1-reh-fmu-fish oil 1,000 mg 1 cap PO BID 11/16/21 10/05/24 10/05/24 History (120 mg-180 mg) capsule (Fish Oil) cetirizine 10 mg tablet (Zyrtec) 10 mg PO HS 04/22/22 10/05/24 10/04/24 History losartan 50 mg tablet 1 tablet PO HS 04/22/22 10/05/24 10/04/24 History ibuprofen 800 mg tablet 600 mg PO TID PRN Pain 07/02/22 10/05/24 Unknown History carboxymethylcellulose sodium 1 % 1 drp EACH EYE TID 10/05/24 10/05/24 10/05/24 History eye liquid gel drops (Refresh Liquigel) Allergies Allergy/AdvReac Type Severity Reaction Status Date / Time No Known Allergies Allergy Verified 11/16/21 08:59 Review of Systems Review of Systems: As reviewed [facility] Past Medical History Medical History Hypertension Numbness and tingling in right hand Head ache Family History Family History Father Cancer Mother Hypertension Sibling H/O cardiac catheterization Social History Social History Smoking packs per day: 1 Smoking cigarettes per day: 20.0 Smoking status: Former smoker Tobacco type: cigarettes Smoking end date: 10/25/81 Alcohol intake: current Drinks per week: 7 Substance use: never Substance use type: does not use Do You Feel Safe in your Home?: Yes Lack of Transportation: No Lack of Food: Never True Current Housing: I Have Housing Concerned About Future Housing: No Difficulty Paying Gas/Electric Bills: No Difficulty Paying for Meds: No Currently Unemployed: No Education: Decline to Answer Difficulty w/ Childcare or Family Care: No Living arrangements: with family Spiritual care concerns: No Exam Narrative: GENERAL: Uncomfortable appearing but not diaphoretic, not any acute respiratory distress, awake and answering questions. HEAD: [Normocephalic, atraumatic.] EYES: [PERRLA and EOMI.] ENT: Nares clear, no rhinorrhea or epistaxis. Mucous membranes moist. NECK: Supple. CHEST: [Clear to auscultation. No respiratory distress.] HEART: Regular rate and rhythm, warm well-perfused extremities, S1-S2 auscultated, ABDOMEN: Protuberant abdomen soft and nondistended, [nontender], [No rigidity or guarding] EXTREMITIES: Normal range of motion. [No edema.] SKIN: Warm, dry, no rash. NEURO: [No focal deficits]. Alert and oriented [x3.] PSYCH: [Normal mood and affect.] Course Vital Signs Vital signs: Vital Signs Temperature 36.4 C 10/05/24 20:18 Pulse Rate 82 10/05/24 20:18 Respiratory Rate 21 H 10/05/24 20:18 Blood Pressure 151/78 H 10/05/24 20:18 Pulse Oximetry 96 10/05/24 20:18 Oxygen Delivery Room Air 10/05/24 20:18 Temperature 36.6 C 10/05/24 20:29 Pulse Rate 106 H 10/06/24 01:00 Respiratory Rate 22 H 10/06/24 01:00 Blood Pressure 161/100 H 10/06/24 01:00 Pulse Oximetry 94 10/06/24 01:00 Oxygen Delivery Room Air 10/05/24 20:29 MDM - Chest Pain MDM Narrative Medical decision making narrative: 78-year-old male with history of hypertension presenting as a STEMI code. Patient had sudden-onset substernal chest pain and called EMS for assistance. EMS noted ST segment elevations in leads 2, 3, AVF and transmitted EKG prior to arrival. I independently reviewed the EKG in confirm inferior STEMI with reciprocal changes in leads 1 and aVL as well as some depressions in V1 through V4. ST segment elevations are 4-5 mm in leads 2 3 and AVF. Patient received aspirin nitro and fentanyl EN route with improvement in his pain. He is uncomfortable appearing but not in acute distress and his vitals are very reassuring with no significant blood pressure concerns, no tachycardia. He is slightly tachypneic but no respiratory distress. Saturating 96% on room air. He has strong symmetric pulses in all limbs and mentating appropriately. I immediately called the [employer] combat [employer] over the phone and instructed on patient's presentation and my concern for an inferior wall ST segment elevation myocardial infarction. We went over patient's clinical exam, imaging studies and EKG which I transmitted to him electronically. Decision was made to activate the cardiac catheterization lab at this time. I spoke to the laborer cutting tool team and relayed the information to them in person while they came to assess the patient. He was provided a heparin bolus of 4000 units including a 1000 unit/hour infusion dose. RT received aspirin EN route, will obstain for any further nitro secondary to the inferior wall MA. Patient was frequently re-evaluated and had continuous pulse oximetry and reo asset manager. His pain is improved, doing well with reassuring vital signs. Cardiology has arrived to the hospital and laborer cutting tool team is ready to take the patient upstairs. His workup here in the emergency department shows no leukocytosis, anemia or platelet concerns. Normal coagulation studies. Does have normal electrolytes without any renal dysfunction. Glucose slightly elevated 186. Initial troponin elevated at 0.026 prior to catheterization. Chest x-rays independent reviewed by myself and shows no acute process. Patient was taken upstairs for cardiac catheterization and will be admitted to ICU afterwards. Left the emergency department without any further issues. Medical Records Data Attestation: I reviewed the patient's medical records. Lab Data Attestation: I reviewed the patient's lab results. 10/05/24 20:38 10/05/24 20:38 Labs: Lab Results 10/05/24 Range/Units 20:38 WBC 9.7 (4.5-10.0) K/mm3 RBC 4.70 (4.6-6.20) M/mm3 Hgb 15.0 (14.0-18.0) g/dL Hct 45.3 (42.0-52.0) % MCV 96.4 (80-100) fl MCH 31.9 (26-34) pg MCHC 33.1 (32-36) g/dl RDW 13.5 (11.5-14.5) % Plt Count 247 (150-375) k/mm3 MPV 9.6 (7.4-10.4) fl Immature Gran % (Auto) 0.3 (0-0.5) % Neut % (Auto) 69.0 (45.5-73.1) % Lymph % (Auto) 20.8 (18.3-44.2) % [place] % (Auto) 8.3 (2.6-8.5) % Eos % (Auto) 0.9 (0-4.4) % Baso % (Auto) 0.7 (0.2-1.2) % Lymph # (Auto) 2.02 (0.9-3.2) K/mm3 [place] # (Auto) 0.8 H (0.1-0.6) K/mm3 Eos # (Auto) 0.1 (0-0.3) K/mm3 Baso # (Auto) 0.1 (0.0-0.1) K/mm3 Abs Immat Gran (auto) 0.03 (0.00-0.031) K/mm3 Absolute Neuts (auto) 6.7 (1.3-6.7) K/mm3 Absolute Nucleated RBC 0.000 (0.0-0.012) K/mm3 Nucleated RBC % 0.0 (0.0-0.2) % PT 14.3 (11.1-14.7) Seconds INR 1.1 APTT 25.9 (22.3-36.8) Seconds Sodium 136 L (137-145) mmol/L Potassium 4.1 (3.4-5.0) mmol/L Chloride 102 (98-107) mmol/L Carbon Dioxide 27 (22-30) mmol/L Anion Gap 7 (4-12) mmol/L BUN 24 H (9-20) mg/dL Creatinine 1.30 (0.7-1.3) mg/dL Estim Creat Clear Calc 50 ml/min Estimated GFR 53 L (59 - ) Glucose 185 H (65-110) mg/dL Hemoglobin A1c 6.0 H (<5.7) % Calcium 9.1 (8.4-10.2) mg/dL Total Bilirubin 0.5 (0.2-1.3) mg/dL AST 36 (17-59) U/L ALT 27 (6-50) U/L Alkaline Phosphatase 47 (38-126) U/L Troponin I 0.026 (0.000-0.034) ng/mL Total Protein 8.0 (6.3-8.2) g/dL Albumin 4.3 (3.5-5.1) g/dL Triglycerides 198 H (<150) mg/dL Cholesterol 218 H (0-200) mg/dL LDL Cholesterol Direct 134 mg/dL HDL Direct 37 mg/dL Blood Type A Positive Antibody Screen Negative Imaging Data Attestation: I personally reviewed and interpreted this imaging study as follows: My impression: Impressions Chest X-Ray 10/05/24 20:57 IMPRESSION: 1. Mild atelectasis at left lung base. ECG Data EKG #1: Attestation: I personally reviewed and interpreted this ECG as follows: ECG completion date: 10/05/24 ECG completion time: 20:27 Prior ECG tracings: not available for review Ischemic changes: acute STEMI and ST elevation Interpretation: ST segment elevation myocardial infarction with 4 mm elevations in leads 2, 3, AVF and reciprocal ST depressions in leads 1, aVL, leads V1 through V3. No previous EKG for comparison. No identify P-waves. Final impression ST segment elevation myocardial infarction, atrial fibrillation Critical Care Time Critical Care Time Critical Care Time: Yes Total Critical Care Time: 35 Discharge Plan Discharge Clinical Impression: ST elevation (STEMI) myocardial infarction, Chest pain Patient Disposition: Still a Patient Condition: Serious Time of Disposition: 21:28
[2024-10-06 02:45] LABS: MRSA (PCR) NOT DETECTED (NOT DETECTE)
[2024-10-06 03:29] LABS: Anion Gap 9 mmol/L (4-12); Blood Urea Nitrogen 23 mg/dL (9-20); Calcium 9.3 mg/dL (8.4-10.2); Carbon Dioxide 23 mmol/L (22-30); Chloride 103 mmol/L (98-107); Estimated CRCL calculation 58 ml/min; Estimated Glomerular Filt Rate > 60; Glucose 162 mg/dL (65-110); Potassium 4.4 mmol/L (3.4-5.0); Sodium 135 mmol/L (137-145)
--- NOTE | 2024-10-06 08:27 | P.PNCA_ITS ---
Progress Note: A&P Assessment and Plan (1) ST elevation (STEMI) myocardial infarction: Code(s): I21.3 - ST elevation (STEMI) myocardial infarction of unspecified site Status: Acute Assessment and Plan: 1. CAD 2. Inf STEMI s/p PCI of mid-distal RCA, POBA PLV 3. HTN 4. Hyperlipidemia Plan 1. Dual antiplatelet therapy with aspirin and ticagrelor, high-dose statin. 2. Assessment of left coronary system/left main coronary artery at a later date, will follow-up with Dr Sultana on discharge 3. Echo pending 4. transfer out of ICU Subjective Date/time seen: 10/06/24 08:27 Interval history: S/p PCI of the mid-distal RCA yesterday. ARASELI 102 flow in PLV post PCI, ARASELI 2 flow in PDA Doing well No more episodes of chest pain or dyspnea BP has remained slightly high Review of Systems Review of Systems: General: Negative for fever, chills, fatigue Psychological: Negative for anxiety, depression Ophthalmic: negative for loss of vision ENT: Negative for epistaxis, headaches Allergy and immunology: Negative for hives, nasal congestion Hematologic and lymphatic: Negative for overt bleeding problems Endocrine: Negative for hot flashes, palpitations Respiratory: Negative for cough, hemoptysis Cardiovascular: positive for severe chest pain Gastrointestinal: Negative for abdominal pain, nausea, vomiting, hematochezia Musculoskeletal: positive for joint pains Neurological: Negative for weakness Dermatological: Negative for rash, skin discoloration Exam Narrative: PHYSICAL EXAMINATION: GENERAL: Alert, appears in mild distress due to chest pain MENTAL STATUS: anxious EYES: Extraocular movements intact, no pallor EARS: External ears appear normal, hearing grossly normal NOSE: Normal and patent, no discharge MOUTH: Mucous membranes moist, tongue normal NECK: Supple, no JVD CHEST: Good respiratory effort, clear to auscultation HEART: Normal rate, regular rhythm with ectopic beats, S4 gallop ABDOMEN: Soft, nontender NEUROLOGICAL: Alert, oriented, normal speech, no gross motor deficits MUSCULOSKELETAL: No major deformity, no amputation EXTREMITIES: No pedal edema, no clubbing, no cyanosis SKIN: no rash on the exposed area, no cyanosis PSYCHIATRIC: Normal mood, appropriate affect Objective Data Vital Signs Vital Signs: Vital Signs - 24 hr 10/05/24 20:18 10/05/24 20:29 10/05/24 20:29 Temperature 36.4 C Pulse Rate 82 72 Respiratory Rate 21 H Blood Pressure 151/78 H Pulse Oximetry 96 96 Oxygen Delivery Room Air Room Air 10/05/24 20:29 10/05/24 22:50 10/05/24 22:55 Temperature 36.6 C 36.8 C Pulse Rate 64 110 H Respiratory Rate 21 H 20 Blood Pressure 141/88 H 164/119 H Pulse Oximetry 96 91 Oxygen Delivery Room Air 10/05/24 23:00 10/05/24 23:11 10/05/24 23:15 Temperature Pulse Rate 122 H 120 H 120 H Respiratory Rate 22 H 24 H Blood Pressure 171/97 H 166/102 H Pulse Oximetry 93 94 Oxygen Delivery 10/05/24 23:30 10/05/24 23:45 10/06/24 00:00 Temperature Pulse Rate 98 103 H 105 H Respiratory Rate 20 19 19 Blood Pressure 158/101 H 160/98 H 159/117 H Pulse Oximetry 94 95 93 Oxygen Delivery 10/06/24 00:00 10/06/24 00:00 10/06/24 00:00 Temperature 36.8 C Pulse Rate 105 H 105 H Respiratory Rate 19 Blood Pressure 159/117 H Pulse Oximetry 93 Oxygen Delivery Room Air 10/06/24 00:30 10/06/24 01:00 10/06/24 02:00 Temperature Pulse Rate 104 H 106 H 88 Respiratory Rate 17 22 H 22 H Blood Pressure 173/105 H 161/100 H 138/98 H Pulse Oximetry 97 94 92 Oxygen Delivery 10/06/24 02:00 10/06/24 02:00 10/06/24 03:00 Temperature Pulse Rate 88 88 78 Respiratory Rate 22 H 19 Blood Pressure 138/98 H 152/93 H Pulse Oximetry 92 94 Oxygen Delivery 10/06/24 04:00 10/06/24 04:00 10/06/24 04:00 Temperature 36.6 C Pulse Rate 75 76 Respiratory Rate 19 Blood Pressure 161/112 H Pulse Oximetry 95 Oxygen Delivery Room Air 10/06/24 04:00 10/06/24 06:00 10/06/24 06:00 Temperature 36.6 C Pulse Rate 76 80 80 Respiratory Rate 19 21 H Blood Pressure 161/112 H 153/94 H Pulse Oximetry 95 95 Oxygen Delivery Intake/Output Intake/Output: Intake & Output 10/03/24 10/04/24 10/05/2413/24 23:59 23:59 23:59 23:59 Intake Total 200 Output Total 300 Balance -100 Meds/Results Medications: Active Medications Generic Name Dose Route Start Last Admin Trade Name Freq PRN Reason Stop Dose Admin Aspirin 81 mg 10/06/24 09:00 Aspirin 81 Mg Enteric Tablet PO QAM COUNT INCLUDES THE [facility] Atorvastatin Calcium 80 mg 10/05/24 22:55 10/05/24 23:29 Atorvastatin 40 Mg Tablet PO 80 mg DAILY COUNT INCLUDES THE [facility] Administration Carvedilol 12.5 mg 10/06/24 09:00 Carvedilol 12.5 Mg Tablet PO Q12HR COUNT INCLUDES THE [facility] Heparin Sodium (Porcine) 4,000 units 10/05/24 21:22 Heparin Sodium 5,000 Units/Ml Vial IV PUSH PRN PRN aPTT less than 55 seconds Heparin Sodium (Porcine) 3,500 units 10/05/24 21:22 Heparin Sodium 5,000 Units/Ml Vial IV PUSH PRN PRN aPTT 55 - 70 seconds Heparin Sodium/Dextrose 25,000 units in 250 mls @ 10 mls/hr 10/05/24 20:40 10/05/24 20:50 Heparin Sodium/D5w 100 Units/Ml IV CONT 1,000 units/hr .Q24H COUNT INCLUDES THE [facility] 10 mls/hr Administration Protocol 1,000 UNITS/HR Losartan Potassium 25 mg 10/06/24 09:00 Losartan Potassium 25 Mg Tablet PO DAILY COUNT INCLUDES THE [facility] Losartan Potassium 50 mg 10/06/24 09:00 Losartan Potassium 50 Mg Tablet PO DAILY COUNT INCLUDES THE [facility] Metoprolol Tartrate 6.25 mg 10/06/24 09:00 Metoprolol Tartrate 6.25 Mg Tablet PO Q12HR COUNT INCLUDES THE [facility] Morphine Sulfate 4 mg 10/05/24 20:33 Morphine Sulfate (*Crx) 4 Mg/Ml Inj IV PUSH ONCE PRN Chest Pain Perflutren Lipid Microsphere 0 ml 10/05/24 22:51 Perflutren Lipid Microspheres 1.5 Ml Vial Diluted To 10 Ml Total Volume IV PUSH 10/08/24 22:52 ONCE PRN adequate visualization Protocol Ticagrelor 90 mg 10/06/24 09:00 Ticagrelor 90 Mg Tablet PO Q12HR COUNT INCLUDES THE [facility] Radiology Results: ITS Impressions Chest X-Ray 10/05/24 20:57 IMPRESSION: 1. Mild atelectasis at left lung base. Labs Labs: Laboratory Results - last 24 hr 10/05/24 10/05/24 10/06/24 20:38 23:33 01:26 WBC 9.7 RBC 4.70 Hgb 15.0 Hct 45.3 MCV 96.4 MCH 31.9 MCHC 33.1 RDW 13.5 Plt Count 247 MPV 9.6 Immature Gran % (Auto) 0.3 Neut % (Auto) 69.0 Lymph % (Auto) 20.8 [place] % (Auto) 8.3 Eos % (Auto) 0.9 Baso % (Auto) 0.7 Lymph # (Auto) 2.02 [place] # (Auto) 0.8 H Eos # (Auto) 0.1 Baso # (Auto) 0.1 Abs Immat Gran (auto) 0.03 Absolute Neuts (auto) 6.7 Absolute Nucleated RBC 0.000 Nucleated RBC % 0.0 PT 14.3 INR 1.1 APTT 25.9 Sodium 136 L Potassium 4.1 Chloride 102 Carbon Dioxide 27 Anion Gap 7 BUN 24 H Creatinine 1.30 Estim Creat Clear Calc 50 Estimated GFR 53 L Glucose 185 H Hemoglobin A1c 6.0 H Calcium 9.1 Magnesium Total Bilirubin 0.5 AST 36 ALT 27 Alkaline Phosphatase 47 Troponin I 0.026 1.260 H* D Total Protein 8.0 Albumin 4.3 Triglycerides 198 H Cholesterol 218 H LDL Cholesterol Direct 134 HDL Direct 37 Nasal MRSA (PCR) Not detected Blood Type A Positive Antibody Screen Negative 10/06/24 10/06/24 02:39 02:40 WBC RBC Hgb Hct MCV MCH MCHC RDW Plt Count MPV Immature Gran % (Auto) Neut % (Auto) Lymph % (Auto) [place] % (Auto) Eos % (Auto) Baso % (Auto) Lymph # (Auto) [place] # (Auto) Eos # (Auto) Baso # (Auto) Abs Immat Gran (auto) Absolute Neuts (auto) Absolute Nucleated RBC Nucleated RBC % PT INR APTT Sodium 135 L Potassium 4.4 Chloride 103 Carbon Dioxide 23 Anion Gap 9 BUN 23 H Creatinine 1.10 Estim Creat Clear Calc 58 Estimated GFR > 60 Glucose 162 H Hemoglobin A1c Calcium 9.3 Magnesium 2.0 Total Bilirubin AST ALT Alkaline Phosphatase Troponin I 13.600 H* D Total Protein Albumin Triglycerides Cholesterol LDL Cholesterol Direct HDL Direct Nasal MRSA (PCR) Blood Type Antibody Screen
[2024-10-06] MEDS: ATORVASTATIN 40 MG TABLET 80 MG PO (08:51)
[2024-10-06] MEDS: carvediloL 12.5 MG TABLET PO ×2 (08:52→20:00)
[2024-10-06] MEDS: LOSARTAN POTASSIUM 50 MG TABLET PO (08:52)
[2024-10-06] MEDS: ASPIRIN 81 MG ENTERIC TABLET PO (08:52)
[2024-10-06] MEDS: TICAGRELOR 90 MG TABLET PO ×2 (08:52→20:00)
[2024-10-06] MEDS: PERFLUTREN LIPID MICROSPHERES 1.5 ML VIAL DILUTED TO 10 ML TOTAL VOLUME IV PUSH (10:30)
--- NOTE | 2024-10-06 11:10 | PC.NURSE ---
Patient opt in for meds to bed program. Updated pharmacy for [facility]. Care coordination is aware of meds to bed program opt in. Care coordination notified Fadia Sharpe that an order needed to be sent for Brillinta to [facility]. Notified Dr. Castro that patient needed order for cardiac rehab. He gave order to downgrade patient. Patient downgraded to IMU status.
--- NOTE | 2024-10-06 11:11 | PCCPR ---
Visited patient and informed regarding cardiac rehab. Left flyer for further information.
--- NOTE | 2024-10-06 11:44 | WPDCNINT ---
Assessment and Plan Assessment and plan (1) ST elevation (STEMI) myocardial infarction: Code(s): I21.3 - ST elevation (STEMI) myocardial infarction of unspecified site Status: Acute Assessment and Plan: Status post STEMI, status post ROBERT x2 mid-distal RCA, balloon angioplasty to RPL branch -Patient also had 50% narrowing of the ostial-proximal segment of the left main coronary system which will need to be evaluated at a later date -continue dual antiplatelet therapy with aspirin, ticagrelor -continue high-dose statin -echocardiogram has been ordered to rule out any major structural heart disease -cardiology following the patient Plan DVT prophylaxis: Status post cardiac catheterization Stress ulcer prophylaxis: Not indicated Nutrition: Heart healthy diet Code Status: Full code Critical Care Time Spent: 46 minutes Discuss with Cardiology Discuss with patient's spouse and son and updated them with patient's condition and plan of care. I answered all the questions Due to a high probability of clinically significant, life threatening deterioration, the patient required my highest level of preparedness to intervene emergently and I personally spent this critical care time directly and personally managing the patient. This critical care time included obtaining a history; examining the patient; pulse oximetry; ordering and review of studies; arranging urgent treatment with development of a management plan; evaluation of patient's response to treatment; frequent reassessment; and discussions with other providers. It was exclusive of separately billable procedures and treating other patients and teaching time. Please see Assessment and Plan section and the rest of the note for further information on patient assessment and treatment This dictation may have been done utilizing a voice recognition system. Attempts have been made to correct errors. However, there may be uncorrected grammatical, spelling, and recognitions errors present. Database Marketing Analyst Consult Note Consult date: 10/06/24 Reason for consult: Status post STEMI, status post ROBERT x2 mid-distal RCA, balloon angioplasty to RPL branch HPI: Иван Briceno is a 78 year old male with past medical history of hypertension, headache presented the ED, no previous cardiac history presented the ED on 10/05/2024 to the ED via EMS with complains of midsternal chest pain that began 3 hours prior to arrival. Initial EKG showed sinus rhythm, ST-elevation inferior leads is reciprocal ST depression. Patient was given aspirin, nitroglycerin and fentanyl which improved his pain in the ER. He did not report of any shortness of breath, nausea, vomiting, back pain. Patient was taken to the cardiac cath laboratory technician where he had the 99% occlusion of mid to distal RCA status post ROBERT x2 mid-distal RCA with balloon angioplasty to RPL branch. Patient was started on aspirin, ticagrelor, high-dose statin. Patient also had 50% narrowing of the ostial-proximal segment of the left main coronary system which will need to be evaluated at a later date. Patient was transferred to the ICU for further management Patient seen and examined the ICU, is awake, alert, denies any chest pain, shortness a breath, abdominal pain, nausea, vomiting. Hemodynamically stable, adequate urine output, afebrile. Patient did have a few runs of nonsustained V-tach through the night PMFSH Past Medical History Medical History Hypertension Numbness and tingling in right hand Head ache Family History Family History Father Cancer Mother Hypertension Sibling H/O cardiac catheterization Social History Social History Smoking packs per day: 1 Smoking cigarettes per day: 20.0 Smoking status: Former smoker Tobacco type: cigarettes Smoking end date: 10/25/81 Alcohol intake: current Drinks per week: 7 Substance use: never Substance use type: does not use Do You Feel Safe in your Home?: Yes Lack of Transportation: No Lack of Food: Never True Current Housing: I Have Housing Concerned About Future Housing: No Difficulty Paying Gas/Electric Bills: No Difficulty Paying for Meds: No Currently Unemployed: No Education: Decline to Answer Difficulty w/ Childcare or Family Care: No Living arrangements: with family Spiritual care concerns: No Meds Home Medications and Allergies Home Medications ?Medication ?Instructions ?Recorded ?Confirmed ?Type glucosamine-chondroitin 250 mg-200 2 tablet PO DAILY 11/16/21 10/05/24 History mg tablet (Osteo Bi-Flex) omega 1-elq-brf-fish oil 1,000 mg 1 cap PO BID 11/16/21 10/05/24 History (120 mg-180 mg) capsule (Fish Oil) cetirizine 10 mg tablet (Zyrtec) 10 mg PO HS 04/22/22 10/05/24 History losartan 50 mg tablet 1 tablet PO HS 04/22/22 10/05/24 History ibuprofen 800 mg tablet 600 mg PO TID PRN Pain 07/02/22 10/05/24 History carboxymethylcellulose sodium 1 % 1 drp EACH EYE TID 10/05/24 10/05/24 History eye liquid gel drops (Refresh Liquigel) Allergies Allergy/AdvReac Type Severity Reaction Status Date / Time No Known Allergies Allergy Verified 11/16/21 08:59 Vital Signs Vital Signs - 24 hr 10/05/24 20:18 10/05/24 20:29 10/05/24 20:29 Temperature 97.6 F Pulse Rate 82 72 Respiratory Rate 21 H Blood Pressure 151/78 H Pulse Oximetry 96 96 Oxygen Delivery Room Air Room Air 10/05/24 20:29 10/05/24 22:50 10/05/24 22:55 Temperature 97.9 F 98.3 F Pulse Rate 64 110 H Respiratory Rate 21 H 20 Blood Pressure 141/88 H 164/119 H Pulse Oximetry 96 91 Oxygen Delivery Room Air 10/05/24 23:00 10/05/24 23:11 10/05/24 23:15 Temperature Pulse Rate 122 H 120 H 120 H Respiratory Rate 22 H 24 H Blood Pressure 171/97 H 166/102 H Pulse Oximetry 93 94 Oxygen Delivery 10/05/24 23:30 10/05/24 23:45 10/06/24 00:00 Temperature Pulse Rate 98 103 H 105 H Respiratory Rate 20 19 19 Blood Pressure 158/101 H 160/98 H 159/117 H Pulse Oximetry 94 95 93 Oxygen Delivery 10/06/24 00:00 10/06/24 00:00 10/06/24 00:00 Temperature 98.2 F Pulse Rate 105 H 105 H Respiratory Rate 19 Blood Pressure 159/117 H Pulse Oximetry 93 Oxygen Delivery Room Air 10/06/24 00:30 10/06/24 01:00 10/06/24 02:00 Temperature Pulse Rate 104 H 106 H 88 Respiratory Rate 17 22 H 22 H Blood Pressure 173/105 H 161/100 H 138/98 H Pulse Oximetry 97 94 92 Oxygen Delivery 10/06/24 02:00 10/06/24 02:00 10/06/24 03:00 Temperature Pulse Rate 88 88 78 Respiratory Rate 22 H 19 Blood Pressure 138/98 H 152/93 H Pulse Oximetry 92 94 Oxygen Delivery 10/06/24 04:00 10/06/24 04:00 10/06/24 04:00 Temperature 97.9 F Pulse Rate 75 76 Respiratory Rate 19 Blood Pressure 161/112 H Pulse Oximetry 95 Oxygen Delivery Room Air 10/06/24 04:00 10/06/24 06:00 10/06/24 06:00 Temperature 97.9 F Pulse Rate 76 80 80 Respiratory Rate 19 21 H Blood Pressure 161/112 H 153/94 H Pulse Oximetry 95 95 Oxygen Delivery 10/06/24 08:00 10/06/24 08:00 10/06/24 08:00 Temperature 98.2 F Pulse Rate 79 80 Respiratory Rate 21 H Blood Pressure 162/90 H Pulse Oximetry 95 Oxygen Delivery Room Air 10/06/24 08:52 10/06/24 10:00 10/06/24 10:00 Temperature Pulse Rate 80 76 73 Respiratory Rate 23 H Blood Pressure 144/87 H Pulse Oximetry 95 Oxygen Delivery Exam Narrative: General: Elderly gentleman in no acute distress HEENT:? Pupils equal and reactive sclerae is clear Neck:? Supple Respiratory:? Clear to auscultation bilaterally, no wheezing, adequate air entry Cardiac:? S1-S2 normal, regular rate and rhythm, Abdomen:? Soft, nontender, nondistended, normoactive bowel sounds Extremities:? No edema, Pap therapy up ulcers, right groin site with no evidence of ecchymosis or hematoma Neuro:? Patient is awake, alert, oriented, nonfocal, answers to questions appropriately and follows simple commands in all extremities Skin:? No skin lesions noted Psych:? Normal mentation, mood and affect Results Labs 10/05/24 20:38 10/06/24 02:39 Labs: Short CBC 10/05/24 Range/Units 20:38 WBC 9.7 (4.5-10.0) K/mm3 Hgb 15.0 (14.0-18.0) g/dL Hct 45.3 (42.0-52.0) % Plt Count 247 (150-375) k/mm3 BMP 10/05/24 10/06/24 20:38 02:39 Sodium 136 L 135 L Potassium 4.1 4.4 Chloride 102 103 Carbon Dioxide 27 23 BUN 24 H 23 H Creatinine 1.30 1.10 Glucose 185 H 162 H Calcium 9.1 9.3 Cardiac Enzymes 10/05/24 10/05/24 10/06/24 Range/Units 20:38 23:33 02:40 Troponin I 0.026 1.260 H* D 13.600 H* D (0.000-0.034) ng/mL Liver Function 10/05/24 Range/Units 20:38 Total Bilirubin 0.5 (0.2-1.3) mg/dL AST 36 (17-59) U/L ALT 27 (6-50) U/L Alkaline Phosphatase 47 (38-126) U/L Albumin 4.3 (3.5-5.1) g/dL
--- NOTE | 2024-10-06 13:30 | P.PNCA_ITS ---
Progress Note: A&P Assessment and Plan (1) ST elevation (STEMI) myocardial infarction: Code(s): I21.3 - ST elevation (STEMI) myocardial infarction of unspecified site Status: Acute Subjective Date/time seen: 10/06/24 13:30 Interval history: in error Objective Data Vital Signs Vital Signs: Vital Signs - 24 hr 10/05/24 20:18 10/05/24 20:29 10/05/24 20:29 Temperature 36.4 C Pulse Rate 82 72 Respiratory Rate 21 H Blood Pressure 151/78 H Pulse Oximetry 96 96 Oxygen Delivery Room Air Room Air 10/05/24 20:29 10/05/24 22:50 10/05/24 22:55 Temperature 36.6 C 36.8 C Pulse Rate 64 110 H Respiratory Rate 21 H 20 Blood Pressure 141/88 H 164/119 H Pulse Oximetry 96 91 Oxygen Delivery Room Air 10/05/24 23:00 10/05/24 23:11 10/05/24 23:15 Temperature Pulse Rate 122 H 120 H 120 H Respiratory Rate 22 H 24 H Blood Pressure 171/97 H 166/102 H Pulse Oximetry 93 94 Oxygen Delivery 10/05/24 23:30 10/05/24 23:45 10/06/24 00:00 Temperature Pulse Rate 98 103 H 105 H Respiratory Rate 20 19 19 Blood Pressure 158/101 H 160/98 H 159/117 H Pulse Oximetry 94 95 93 Oxygen Delivery 10/06/24 00:00 10/06/24 00:00 10/06/24 00:00 Temperature 36.8 C Pulse Rate 105 H 105 H Respiratory Rate 19 Blood Pressure 159/117 H Pulse Oximetry 93 Oxygen Delivery Room Air 10/06/24 00:30 10/06/24 01:00 10/06/24 02:00 Temperature Pulse Rate 104 H 106 H 88 Respiratory Rate 17 22 H 22 H Blood Pressure 173/105 H 161/100 H 138/98 H Pulse Oximetry 97 94 92 Oxygen Delivery 10/06/24 02:00 10/06/24 02:00 10/06/24 03:00 Temperature Pulse Rate 88 88 78 Respiratory Rate 22 H 19 Blood Pressure 138/98 H 152/93 H Pulse Oximetry 92 94 Oxygen Delivery 10/06/24 04:00 10/06/24 04:00 10/06/24 04:00 Temperature 36.6 C Pulse Rate 75 76 Respiratory Rate 19 Blood Pressure 161/112 H Pulse Oximetry 95 Oxygen Delivery Room Air 10/06/24 04:00 10/06/24 06:00 10/06/24 06:00 Temperature 36.6 C Pulse Rate 76 80 80 Respiratory Rate 19 21 H Blood Pressure 161/112 H 153/94 H Pulse Oximetry 95 95 Oxygen Delivery 10/06/24 08:00 10/06/24 08:00 10/06/24 08:00 Temperature 36.8 C Pulse Rate 79 80 Respiratory Rate 21 H Blood Pressure 162/90 H Pulse Oximetry 95 Oxygen Delivery Room Air 10/06/24 08:52 10/06/24 10:00 10/06/24 10:00 Temperature Pulse Rate 80 76 73 Respiratory Rate 23 H Blood Pressure 144/87 H Pulse Oximetry 95 Oxygen Delivery 10/06/24 12:00 10/06/24 12:00 10/06/24 12:07 Temperature 36.7 C Pulse Rate 83 78 Respiratory Rate 19 Blood Pressure 155/107 H Pulse Oximetry 95 Oxygen Delivery Room Air Intake/Output Intake/Output: Intake & Output 10/03/24 10/04/24 10/05/24 10/06/24 23:59 23:59 23:59 23:59 Intake Total 440 Output Total 1000 Balance -560 Meds/Results Medications: Active Medications Generic Name Dose Route Start Last Admin Trade Name Freq PRN Reason Stop Dose Admin Aspirin 81 mg 10/06/24 09:00 10/06/24 08:52 Aspirin 81 Mg Enteric Tablet PO 81 mg QAM CLIFF Administration Atorvastatin Calcium 80 mg 10/05/24 22:55 10/06/24 08:51 Atorvastatin 40 Mg Tablet PO 80 mg DAILY CLIFF Administration Carvedilol 12.5 mg 10/06/24 09:00 10/06/24 08:52 Carvedilol 12.5 Mg Tablet PO 12.5 mg Q12HR CLIFF Administration Losartan Potassium 50 mg 10/06/24 09:00 10/06/24 08:52 Losartan Potassium 50 Mg Tablet PO 50 mg DAILY CLIFF Administration Morphine Sulfate 4 mg 10/05/24 20:33 Morphine Sulfate (*Crx) 4 Mg/Ml Inj IV PUSH ONCE PRN Chest Pain Ticagrelor 90 mg 10/06/24 09:00 10/06/24 08:52 Ticagrelor 90 Mg Tablet PO 90 mg Q12HR CLIFF Administration Radiology Results: ITS Impressions Chest X-Ray 10/05/24 20:57 IMPRESSION: 1. Mild atelectasis at left lung base. Labs Labs: Laboratory Results - last 24 hr 10/05/24 10/05/24 10/06/24 20:38 23:33 01:26 WBC 9.7 RBC 4.70 Hgb 15.0 Hct 45.3 MCV 96.4 MCH 31.9 MCHC 33.1 RDW 13.5 Plt Count 247 MPV 9.6 Immature Gran % (Auto) 0.3 Neut % (Auto) 69.0 Lymph % (Auto) 20.8 [place] % (Auto) 8.3 Eos % (Auto) 0.9 Baso % (Auto) 0.7 Lymph # (Auto) 2.02 [place] # (Auto) 0.8 H Eos # (Auto) 0.1 Baso # (Auto) 0.1 Abs Immat Gran (auto) 0.03 Absolute Neuts (auto) 6.7 Absolute Nucleated RBC 0.000 Nucleated RBC % 0.0 PT 14.3 INR 1.1 APTT 25.9 Sodium 136 L Potassium 4.1 Chloride 102 Carbon Dioxide 27 Anion Gap 7 BUN 24 H Creatinine 1.30 Estim Creat Clear Calc 50 Estimated GFR 53 L Glucose 185 H Hemoglobin A1c 6.0 H Calcium 9.1 Magnesium Total Bilirubin 0.5 AST 36 ALT 27 Alkaline Phosphatase 47 Troponin I 0.026 1.260 H* D Total Protein 8.0 Albumin 4.3 Triglycerides 198 H Cholesterol 218 H LDL Cholesterol Direct 134 HDL Direct 37 Nasal MRSA (PCR) Not detected Blood Type A Positive Antibody Screen Negative 10/06/24 10/06/24 02:39 02:40 WBC RBC Hgb Hct MCV MCH MCHC RDW Plt Count MPV Immature Gran % (Auto) Neut % (Auto) Lymph % (Auto) [place] % (Auto) Eos % (Auto) Baso % (Auto) Lymph # (Auto) [place] # (Auto) Eos # (Auto) Baso # (Auto) Abs Immat Gran (auto) Absolute Neuts (auto) Absolute Nucleated RBC Nucleated RBC % PT INR APTT Sodium 135 L Potassium 4.4 Chloride 103 Carbon Dioxide 23 Anion Gap 9 BUN 23 H Creatinine 1.10 Estim Creat Clear Calc 58 Estimated GFR > 60 Glucose 162 H Hemoglobin A1c Calcium 9.3 Magnesium 2.0 Total Bilirubin AST ALT Alkaline Phosphatase Troponin I 13.600 H* D Total Protein Albumin Triglycerides Cholesterol LDL Cholesterol Direct HDL Direct Nasal MRSA (PCR) Blood Type Antibody Screen
--- NOTE | 2024-10-06 15:42 | PC.NURSE ---
Holly banda gave it to to take home with her.
--- NOTE | 2024-10-06 16:08 | IVDEFINITY ---
Prior to administration of IV Definity the patient was educated on the risks and benefits of the imaging enhancing agent including potential adverse side effects. The patient verbalized understanding. Allergies were verified. No exclusion criteria were identified and at least one of the following inclusion criteria were met: 1) physician request, 2) patient technically difficult to image (per the [place] [employer] guidelines of two or more segments not discernable within the apical view), or 3) questionable left ventricular function. ?
[2024-10-06] MEDS: FUROSEMIDE INJ 40 MG/4 ML VIAL IV PUSH (17:37)
[2024-10-07] VITALS (20 sets, daily range): BP systolic 102–146; BP diastolic 67–91; PULSE 69–144; RESP 16–20; TEMP 36.3–36.8; O2SAT 91–98
[2024-10-07] MEDS: ASPIRIN 81 MG ENTERIC TABLET PO (08:56)
[2024-10-07] MEDS: FUROSEMIDE 40 MG TABLET PO (08:56)
[2024-10-07] MEDS: ATORVASTATIN 40 MG TABLET 80 MG PO (08:56)
[2024-10-07] MEDS: TICAGRELOR 90 MG TABLET PO ×2 (08:56→20:32)
[2024-10-07] MEDS: carvediloL 12.5 MG TABLET PO (08:56)
[2024-10-07] MEDS: LOSARTAN POTASSIUM 50 MG TABLET PO (08:56)
--- NOTE | 2024-10-07 14:45 | P.CONIM_ITS ---
Assessment and Plan Assessment and plan (1) Confusion: Code(s): R41.0 - Disorientation, unspecified Status: Acute Assessment and Plan: He has reportedly had some short-term memory loss for couple of years and I suspect he may have mild cognitive impairment which has yet to be diagnosed. He is probably a bit confused now due to the hospitalization itself and medications that he received. He gives no history to suggest underlying infection. Stroke seems unlikely by history and physical exam findings however family members are very concerned for that and a brain MRI has been ordered. Check brain CT, CMP, TSH, B12, and electrolytes. (2) Acute ST elevation myocardial infarction (STEMI) of inferior wall: Onset Date: 10/05/24 Code(s): I21.19 - ST elevation (STEMI) myocardial infarction involving other coronary artery of inferior wall Status: Acute Assessment and Plan: Status post angioplasty and drug-eluting stent to the RCA and angioplasty to RPL branch on 10/05/2024. On dual antiplatelet therapy, aspirin, and beta-ofe per Cardiology. (3) Atrial fibrillation with rapid ventricular response: Code(s): I48.91 - Unspecified atrial fibrillation Status: Acute Assessment and Plan: Patient went into rapid atrial fibrillation this afternoon and is asymptomatic. Received 0.5 mg digoxin per Cardiology. (4) Heart failure with mildly reduced ejection fraction: Code(s): I50.22 - Chronic systolic (congestive) heart failure Status: Acute Assessment and Plan: Echo showed reduced left and right ventricular systolic function with an estimated EF of 40-45% and grade 1 diastolic dysfunction. Appears clinically compensated at this time; management per Cardiology. (5) Hyperlipidemia: Code(s): E78.5 - Hyperlipidemia, unspecified Status: Acute Assessment and Plan: Continue high-intensity statin. AST is up a bit today, likely related to STEMI. (6) Hypertension: Qualifiers: Hypertension type: primary hypertension Qualified Code(s): I10 - Essential (primary) hypertension Code(s): I10 - Essential (primary) hypertension Status: Acute Assessment and Plan: Blood pressures were reviewed and they have been stable. (7) Prediabetes: Code(s): R73.03 - Prediabetes Status: Acute Assessment and Plan: Hemoglobin A1c is 6.0%. Weight loss and dietary changes encouraged. Consider SGLT 2 inhibitor. Plan Thank you for allowing us to participate in this patient's care. Please do not hesitate to contact us with any questions. HPI Date of Consult Consult date: 10/07/24 Requesting Physician: Galindo Sultana MD Primary Care Provider: Anish Vergara MD Consult Narrative Reason for consult: change in mental status Narrative: This is an 78-year-old male who presented emergency department on 10/05/2024 via EMS from home with complaints of chest pain, found to have an acute inferior ST- elevation myocardial infarction for which he underwent successful balloon angioplasty and stenting of a subtotal occlusion of the mid distal RCA and balloon angioplasty of a subtotal occlusion in the RPL branch. Echocardiogram done the following day showed a mildly reduced left ventricular systolic function with an ejection fraction estimated at 40 to 45%, grade 1 diastolic dysfunction, akinesis of the inferior wall the left ventricle, and reduced right ventricular systolic function. He has not had any chest pain or shortness of breath since presentation and today he was transferred out of the ICU. and children have noticed that the patient seems to be a bit confused, for instance he continuously tries to get up despite being told numerous times that his bed alarm will go off, and he has been having difficulties with orientation questions, specifically he has been having difficulties with the current year. Discharge was held today and the hospitalist service has been consulted given this confusion. On review of his chart it looks like he flipped into rapid atrial fibrillation sometime today as well which is a new diagnosis for him though he is asymptomatic. At the time of my evaluation the patient is sitting in a chair at the side of the bed and reports that he is feeling good. He does not think that he is particularly confused but goes along with what his family members say. With further questioning reports that he has exhibited short- term memory loss for a couple of years and she has noticed that on Sundays when their schedule is a bit earlier than usual for mass that he seems to be a bit confused. He has never been evaluated for or diagnosed with cognitive impairment. She is concerned that he may have had a stroke. Currently he has no complaints and is in good spirits. He denies headache, vertigo, visual changes, focal weakness, paresthesias, difficulty speaking and swallowing, fever, chills, sweats, cold and flu symptoms, nausea, vomiting, diarrhea, dysuria, chest pain, palpitations, sensations of racing heart, and shortness of breath. Review of Systems 2 Review of Systems: 12 systems were reviewed and are negativ e except for as per HPI. FORMERLY [facility] Past Medical History Medical History Heart failure with mildly reduced ejection fraction Prediabetes Hemoglobin A1c was 6% on 10/05/2024 Hypertension Macular degeneration Arthritis Acute ST elevation myocardial infarction (STEMI) of inferior wall (10/05/24) Coronary artery disease Hyperlipidemia Surgical History Surgical History History of coronary angioplasty with insertion of stent (10/05/24) balloon angioplasty and stenting of subtotal occlusion of mid distal RCA in overlapping fashion and balloon angioplasty of subtotal occlusion in the RPL branch per Dr. Sultana Family History Family History Father Cancer Mother Hypertension Sibling H/O cardiac catheterization Social History Social History (Updated 10/07/24 @ 20:33 by Tangela Henson PA-C) Social History: Surrogate medical decision maker: Son Briceno (son) or Lety Kaity (spouse). Code status: Full code. Smoking packs per day: 1 Smoking cigarettes per day: 20.0 Smoking status: Former smoker Tobacco type: cigarettes Smoking end date: 10/25/81 Alcohol intake: current Drinks per week: 7 Substance use: never Substance use type: does not use Do You Feel Safe in your Home?: Yes Lack of Transportation: No Lack of Food: Never True Current Housing: I Have Housing Concerned About Future Housing: No Difficulty Paying Gas/Electric Bills: No Difficulty Paying for Meds: No Currently Unemployed: No Education: Decline to Answer Difficulty w/ Childcare or Family Care: No Living arrangements: with family Additional living arrangements comments: Lives with spouse in [place]. Occupation/Education: retired Additional occupation/education comments: [employer]. Spiritual care concerns: No Meds Home Medications and Allergies Home Medications ?Medication ?Instructions ?Recorded ?Confirmed ?Type glucosamine-chondroitin 250 mg-200 2 tablet PO DAILY 11/16/21 10/05/24 History mg tablet (Osteo Bi-Flex) omega 2-axt-umb-fish oil 1,000 mg 1 cap PO BID 11/16/21 10/05/24 History (120 mg-180 mg) capsule (Fish Oil) cetirizine 10 mg tablet (Zyrtec) 10 mg PO HS 04/22/22 10/05/24 History losartan 50 mg tablet 1 tablet PO HS 04/22/22 10/05/24 History ibuprofen 800 mg tablet 600 mg PO TID PRN Pain 07/02/22 10/05/24 History carboxymethylcellulose sodium 1 % 1 drp EACH EYE TID 10/05/24 10/05/24 History eye liquid gel drops (Refresh Liquigel) aspirin 81 mg tablet,delayed 81 mg PO QAM 30 days #30 tabs 10/06/24 Rx release atorvastatin 40 mg tablet 80 mg (2 x 40 mg) PO DAILY 30 days 10/06/24 Rx #60 tabs carvedilol 12.5 mg tablet (Coreg) 12.5 mg PO Q12HR 30 days #60 tabs 10/06/24 Rx losartan 50 mg tablet (Cozaar) 50 mg PO DAILY 30 days #30 tabs 10/06/24 Rx Allergies Allergy/AdvReac Type Severity Reaction Status Date / Time No Known Allergies Allergy Verified 11/16/21 08:59 Vital Signs Vital Signs - 24 hr 10/06/24 16:00 10/06/24 16:00 10/06/24 16:00 Temperature 98.2 F Pulse Rate 73 70 Respiratory Rate 20 Blood Pressure 162/97 H Pulse Oximetry 98 Oxygen Delivery Room Air 10/06/24 18:00 10/06/24 19:02 10/06/24 20:00 Temperature 97.7 F Pulse Rate 79 76 79 Respiratory Rate 18 Blood Pressure 138/77 Pulse Oximetry 100 Oxygen Delivery 10/06/24 20:00 10/06/24 20:00 10/06/24 22:00 Temperature Pulse Rate 74 78 Respiratory Rate Blood Pressure Pulse Oximetry Oxygen Delivery Room Air 10/07/24 00:00 10/07/24 00:00 10/07/24 00:00 Temperature 98.3 F Pulse Rate 85 79 Respiratory Rate 18 Blood Pressure 137/85 Pulse Oximetry 97 Oxygen Delivery Room Air 10/07/24 02:00 10/07/24 03:00 10/07/24 03:00 Temperature 97.9 F Pulse Rate 87 76 Respiratory Rate 16 Blood Pressure 146/85 H Pulse Oximetry 97 Oxygen Delivery Room Air 10/07/24 04:00 10/07/24 06:00 10/07/24 08:00 Temperature 98.2 F Pulse Rate 69 77 80 Respiratory Rate 20 Blood Pressure 135/79 Pulse Oximetry 98 Oxygen Delivery 10/07/24 08:00 10/07/24 08:00 10/07/24 10:00 Temperature Pulse Rate 82 87 Respiratory Rate Blood Pressure Pulse Oximetry Oxygen Delivery Room Air 10/07/24 11:54 10/07/24 12:00 10/07/24 12:00 Temperature 98.3 F Pulse Rate 75 76 Respiratory Rate 20 Blood Pressure 102/67 Pulse Oximetry 97 Oxygen Delivery Room Air 10/07/24 14:00 Temperature Pulse Rate 78 Respiratory Rate Blood Pressure Pulse Oximetry Oxygen Delivery Exam 2 Narrative: General: Well-developed gentleman sitting in a chair at the side of the bed in no distress. Weight: 104.3 kg. BMI: 33. HEENT: Wearing corrective lenses. PERRL, EOMI. Sclera anicteric. Oral mucosa moist. Delete Neck: Supple. No JVD. Respiratory: Lungs are clear to auscultation bilaterally. Cardiovascular: Irregularly irregular rate and rhythm. Gastrointestinal: Abdomen is soft, nontender, and nondistended with positive bowel sounds. Skin: Warm and dry. No rash or lesions on limited exam. Extremities: No cyanosis, clubbing, or edema. Radial and pedal pulses intact. Neurological: Alert and oriented to name, age, date of , place, and president. He cannot provide the current year (1973). Cranial nerves 2-12 are grossly intact. Speech is clear. No facial asymmetry. 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 No pronator drift. Normal [id number]. Gait not assessed. Psychiatric: Pleasant and cooperative. Appropriate mood. He is in good spirits. Results Labs 10/07/24 14:50 10/07/24 14:50 Labs: Cardiac Enzymes 10/07/24 10/07/24 Range/Units 10:19 12:17 Troponin I 24.800 H* 23.800 H* (0.000-0.034) ng/mL Quality VTE Prophylaxis VTE prophylaxis: mechanical ordered If No VTE Prophylaxis Answer both mechanical and pharmacologic: Reason no pharmacologic proph: medical contraindication (patient on dual anti- platelet therapy, pharmacologic prophylaxis would put him at increased risk for bleeding) Hospitalist MIPS Advance Care Plan I have confirmed that the patient's Advanced Care Plan is present, code status is documented, or surrogate decision maker is listed in patient medical record.: Yes Medication Reconciliation I have utilized all available resources to obtain, update and review the patients current medications (includes all prescriptions, OTC, herbals, cannabis, and nutritional supplements).: Yes
[2024-10-07 14:59] LABS: Hemoglobin 16.5 g/dL (14.0-18.0); Mean Corpuscular HGB Conc 34.4 g/dl (32-36); Mean Corpuscular Hemoglobin 32.3 pg (26-34); Mean Corpuscular Volume 93.9 fl (80-100); Mean Platelet Volume 9.7 fl (7.4-10.4); Platelet Count Result 241 k/mm3 (150-375); Red Blood Count 5.11 M/mm3 (4.6-6.20); Red Cell Distribution Width 13.2 % (11.5-14.5); White Blood Count 10.9 K/mm3 (4.5-10.0)
[2024-10-07 15:05] LABS: Ammonia < 9 umol/L (9-30)
[2024-10-07 15:18] LABS: Alanine Aminotransferase 44 U/L (6-50); Albumin Level 4.1 g/dL (3.5-5.1); Alkaline Phosphatase 47 U/L (38-126); Anion Gap 9 mmol/L (4-12); Aspartate Amino Transferase 207 U/L (17-59); Bilirubin,Total 1.5 mg/dL (0.2-1.3); Blood Urea Nitrogen 24 mg/dL (9-20); Calcium 9.1 mg/dL (8.4-10.2); Carbon Dioxide 24 mmol/L (22-30); Chloride 99 mmol/L (98-107); Estimated CRCL calculation 53 ml/min; Estimated Glomerular Filt Rate 58; Glucose 179 mg/dL (65-110); Potassium 3.8 mmol/L (3.4-5.0); Sodium 132 mmol/L (137-145)
--- NOTE | 2024-10-07 15:26 | PM.PNCARD ---
Progress Note: A&P Assessment and Plan (1) ST elevation (STEMI) myocardial infarction: Code(s): I21.3 - ST elevation (STEMI) myocardial infarction of unspecified site Status: Acute Assessment and Plan: 1. CAD 2. Inf STEMI s/p PCI of mid-distal RCA, POBA PLV 3. HTN 4. Hyperlipidemia 5. Ischemic cardiomyopathy 6. Suspect delirium, has underlying dementia Plan 1. Dual antiplatelet therapy with aspirin and ticagrelor, high-dose statin. 2. Assessment of left coronary system/left main coronary artery at a later date, will follow-up with Dr Sultana on discharge 3. Continue carvedilol, losartan. MRA as an outpatient her blood pressure allows. As usual T2 inhibitor if no infection the urine 4. Will switch to oral Lasix from today 5. Suspect his underlying cognitive dysfunction and dementia; patient is currently in delirium. Most likely secondary to change in circumstances. However will consult the hospitalist team to evaluate him of possible infectious workup to rule out UTI. Will hold discharge today Subjective Date/time seen: 10/07/24 15:26 Interval history: The family feels easily confused. Had a similar episode post cataract surgery Denies chest pain shortness dyspnea Tele shows occasional PVC Review of Systems Review of Systems: General: Negative for fever, chills, fatigue Psychological: Negative for anxiety, depression Ophthalmic: negative for loss of vision ENT: Negative for epistaxis, headaches Allergy and immunology: Negative for hives, nasal congestion Hematologic and lymphatic: Negative for overt bleeding problems Endocrine: Negative for hot flashes, palpitations Respiratory: Negative for cough, hemoptysis Cardiovascular: positive for severe chest pain Gastrointestinal: Negative for abdominal pain, nausea, vomiting, hematochezia Musculoskeletal: positive for joint pains Neurological: Negative for weakness Dermatological: Negative for rash, skin discoloration Exam Narrative: PHYSICAL EXAMINATION: GENERAL: Alert, appears in mild distress due to chest pain MENTAL STATUS: anxious EYES: Extraocular movements intact, no pallor EARS: External ears appear normal, hearing grossly normal NOSE: Normal and patent, no discharge MOUTH: Mucous membranes moist, tongue normal NECK: Supple, no JVD CHEST: Good respiratory effort, clear to auscultation HEART: Normal rate, regular rhythm with ectopic beats, S4 gallop ABDOMEN: Soft, nontender NEUROLOGICAL: Alert, oriented, normal speech, no gross motor deficits MUSCULOSKELETAL: No major deformity, no amputation EXTREMITIES: No pedal edema, no clubbing, no cyanosis SKIN: no rash on the exposed area, no cyanosis PSYCHIATRIC: Normal mood, appropriate affect Objective Data Vital Signs Vital Signs: Vital Signs - 24 hr 10/06/24 16:00 10/06/24 16:00 10/06/24 16:00 Temperature 36.8 C Pulse Rate 73 70 Respiratory Rate 20 Blood Pressure 162/97 H Pulse Oximetry 98 Oxygen Delivery Room Air 10/06/24 18:00 10/06/24 19:02 10/06/24 20:00 Temperature 36.5 C Pulse Rate 79 76 79 Respiratory Rate 18 Blood Pressure 138/77 Pulse Oximetry 100 Oxygen Delivery 10/06/24 20:00 10/06/24 20:00 10/06/24 22:00 Temperature Pulse Rate 74 78 Respiratory Rate Blood Pressure Pulse Oximetry Oxygen Delivery Room Air 10/07/24 00:00 10/07/24 00:00 10/07/24 00:00 Temperature 36.8 C Pulse Rate 85 79 Respiratory Rate 18 Blood Pressure 137/85 Pulse Oximetry 97 Oxygen Delivery Room Air 10/07/24 02:00 10/07/24 03:00 10/07/24 03:00 Temperature 36.6 C Pulse Rate 87 76 Respiratory Rate 16 Blood Pressure 146/85 H Pulse Oximetry 97 Oxygen Delivery Room Air 10/07/24 04:00 10/07/24 06:00 10/07/24 08:00 Temperature 36.8 C Pulse Rate 69 77 80 Respiratory Rate 20 Blood Pressure 135/79 Pulse Oximetry 98 Oxygen Delivery 10/07/24 08:00 10/07/24 08:00 10/07/24 10:00 Temperature Pulse Rate 82 87 Respiratory Rate Blood Pressure Pulse Oximetry Oxygen Delivery Room Air 10/07/24 11:54 10/07/24 12:00 10/07/24 12:00 Temperature 36.8 C Pulse Rate 75 76 Respiratory Rate 20 Blood Pressure 102/67 Pulse Oximetry 97 Oxygen Delivery Room Air 10/07/24 14:00 Temperature Pulse Rate 78 Respiratory Rate Blood Pressure Pulse Oximetry Oxygen Delivery Intake/Output Intake/Output: Intake & Output 10/04/24 10/05/24 10/06/24 10/07/24 23:59 23:59 23:59 23:59 Intake Total 680 420 Output Total 1200 750 Balance -520 -330 Meds/Results Medications: Active Medications Generic Name Dose Route Start Last Admin Trade Name Jerald PRN Reason Stop Dose Admin Aspirin 81 mg 10/06/24 09:00 10/07/24 08:56 Aspirin 81 Mg Enteric Tablet PO 81 mg QAM CLIFF Administration Atorvastatin Calcium 80 mg 10/05/24 22:55 10/07/24 08:56 Atorvastatin 40 Mg Tablet PO 80 mg DAILY CLIFF Administration Carvedilol 12.5 mg 10/06/24 09:00 10/07/24 08:56 Carvedilol 12.5 Mg Tablet PO 12.5 mg Q12HR CLIFF Administration Furosemide 40 mg 10/07/24 09:00 10/07/24 08:56 Furosemide 40 Mg Tablet PO 40 mg DAILY CLIFF Administration Losartan Potassium 50 mg 10/06/24 09:00 10/07/24 08:56 Losartan Potassium 50 Mg Tablet PO 50 mg DAILY CLIFF Administration Morphine Sulfate 4 mg 10/05/24 20:33 Morphine Sulfate (*Crx) 4 Mg/Ml Inj IV PUSH ONCE PRN Chest Pain Ticagrelor 90 mg 10/06/24 09:00 10/07/24 08:56 Ticagrelor 90 Mg Tablet PO 90 mg Q12HR CLIFF Administration Radiology Results: ITS Impressions Chest X-Ray 10/05/24 20:57 IMPRESSION: 1. Mild atelectasis at left lung base. Labs Labs: Laboratory Results - last 24 hr 10/07/24 10/07/24 10/07/24 10:19 12:17 14:50 WBC 10.9 H RBC 5.11 Hgb 16.5 Hct 48.0 MCV 93.9 MCH 32.3 MCHC 34.4 RDW 13.2 Plt Count 241 MPV 9.7 Sodium 132 L Potassium 3.8 Chloride 99 Carbon Dioxide 24 Anion Gap 9 BUN 24 H Creatinine 1.20 Estim Creat Clear Calc 53 Estimated GFR 58 L Glucose 179 H Calcium 9.1 Total Bilirubin 1.5 H AST 207 H ALT 44 Alkaline Phosphatase 47 Ammonia < 9 L Troponin I 24.800 H* 23.800 H* Total Protein 7.0 Albumin 4.1
[2024-10-07 16:18] LABS: Magnesium 1.7 mg/dL (1.6-2.3)
--- NOTE | 2024-10-07 16:22 | PM.PNCARD ---
Subjective Date/time seen: 10/07/24 16:22 Interval history: in error Objective Data Vital Signs Vital Signs: Vital Signs - 24 hr 10/06/24 18:00 10/06/24 19:02 10/06/24 20:00 Temperature 36.5 C Pulse Rate 79 76 79 Respiratory Rate 18 Blood Pressure 138/77 Pulse Oximetry 100 Oxygen Delivery 10/06/24 20:00 10/06/24 20:00 10/06/24 22:00 Temperature Pulse Rate 74 78 Respiratory Rate Blood Pressure Pulse Oximetry Oxygen Delivery Room Air 10/07/24 00:00 10/07/24 00:00 10/07/24 00:00 Temperature 36.8 C Pulse Rate 85 79 Respiratory Rate 18 Blood Pressure 137/85 Pulse Oximetry 97 Oxygen Delivery Room Air 10/07/24 02:00 10/07/24 03:00 10/07/24 03:00 Temperature 36.6 C Pulse Rate 87 76 Respiratory Rate 16 Blood Pressure 146/85 H Pulse Oximetry 97 Oxygen Delivery Room Air 10/07/24 04:00 10/07/24 06:00 10/07/24 08:00 Temperature 36.8 C Pulse Rate 69 77 80 Respiratory Rate 20 Blood Pressure 135/79 Pulse Oximetry 98 Oxygen Delivery 10/07/24 08:00 10/07/24 08:00 10/07/24 10:00 Temperature Pulse Rate 82 87 Respiratory Rate Blood Pressure Pulse Oximetry Oxygen Delivery Room Air 10/07/24 11:54 10/07/24 12:00 10/07/24 12:00 Temperature 36.8 C Pulse Rate 75 76 Respiratory Rate 20 Blood Pressure 102/67 Pulse Oximetry 97 Oxygen Delivery Room Air 10/07/24 14:00 10/07/24 15:56 Temperature 36.3 C L Pulse Rate 78 118 H Respiratory Rate 20 Blood Pressure 105/79 Pulse Oximetry 96 Oxygen Delivery Intake/Output Intake/Output: Intake & Output 10/04/24 10/05/24 10/06/24 10/07/24 23:59 23:59 23:59 23:59 Intake Total 680 420 Output Total 1200 750 Balance -520 -330 Meds/Results Medications: Active Medications Generic Name Dose Route Start Last Admin Trade Name Freq PRN Reason Stop Dose Admin Aspirin 81 mg 10/06/24 09:00 10/07/24 08:56 Aspirin 81 Mg Enteric Tablet PO 81 mg QAM CLIFF Administration Atorvastatin Calcium 80 mg 10/05/24 22:55 10/07/24 08:56 Atorvastatin 40 Mg Tablet PO 80 mg DAILY CLIFF Administration Carvedilol 12.5 mg 10/06/24 09:00 10/07/24 08:56 Carvedilol 12.5 Mg Tablet PO 12.5 mg Q12HR CLIFF Administration Furosemide 40 mg 10/07/24 09:00 10/07/24 08:56 Furosemide 40 Mg Tablet PO 40 mg DAILY CLIFF Administration Losartan Potassium 50 mg 10/06/24 09:00 10/07/24 08:56 Losartan Potassium 50 Mg Tablet PO 50 mg DAILY CLIFF Administration Morphine Sulfate 4 mg 10/05/24 20:33 Morphine Sulfate (*Crx) 4 Mg/Ml Inj IV PUSH ONCE PRN Chest Pain Ticagrelor 90 mg 10/06/24 09:00 10/07/24 08:56 Ticagrelor 90 Mg Tablet PO 90 mg Q12HR CLIFF Administration Radiology Results: ITS Impressions Chest X-Ray 10/05/24 20:57 IMPRESSION: 1. Mild atelectasis at left lung base. Head CT 10/07/24 15:30 IMPRESSION: No acute intracranial process. Labs Labs: Laboratory Results - last 24 hr 10/07/24 10/07/24 10/07/24 10:19 12:17 14:50 WBC 10.9 H RBC 5.11 Hgb 16.5 Hct 48.0 MCV 93.9 MCH 32.3 MCHC 34.4 RDW 13.2 Plt Count 241 MPV 9.7 Sodium 132 L Potassium 3.8 Chloride 99 Carbon Dioxide 24 Anion Gap 9 BUN 24 H Creatinine 1.20 Estim Creat Clear Calc 53 Estimated GFR 58 L Glucose 179 H Calcium 9.1 Magnesium 1.7 Total Bilirubin 1.5 H AST 207 H ALT 44 Alkaline Phosphatase 47 Ammonia < 9 L Troponin I 24.800 H* 23.800 H* Total Protein 7.0 Albumin 4.1 Vitamin B12 257.0 TSH (Reflex) 6.510 H
[2024-10-07] MEDS: DIGOXIN INJ 250 MCG/ML 2 ML AMP (*BKC) 500 MCG IV PUSH (16:26)
[2024-10-07 16:48] LABS: Free T4 Free Thyroxine Reflex 1.04 ng/dL (0.78-2.19)
[2024-10-07 17:38] LABS: Total Triiodothyronine (T3) 0.87 NG/ML (0.97-1.69)
[2024-10-07] MEDS: METOPROLOL TARTRATE 25 MG TABLET PO (18:34)
[2024-10-07] MEDS: DIGOXIN INJ 250 MCG/ML 2 ML AMP (*BKC) IV PUSH (22:15)
[2024-10-08] VITALS (15 sets, daily range): BP systolic 96–110; BP diastolic 46–75; PULSE 69–112; RESP 16–18; TEMP 36.3–37.1; O2SAT 93–97
[2024-10-08] MEDS: TICAGRELOR 90 MG TABLET PO (08:56)
[2024-10-08] MEDS: METOPROLOL TARTRATE 25 MG TABLET PO ×2 (08:56→20:39)
[2024-10-08] MEDS: ASPIRIN 81 MG ENTERIC TABLET PO (08:57)
[2024-10-08] MEDS: ATORVASTATIN 40 MG TABLET 80 MG PO (08:57)
[2024-10-08] MEDS: FUROSEMIDE 40 MG TABLET PO (08:57)
[2024-10-08] MEDS: LOSARTAN POTASSIUM 50 MG TABLET PO (08:57)
--- NOTE | 2024-10-08 12:21 | P.PNCA_ITS ---
Progress Note: A&P Assessment and Plan (1) ST elevation (STEMI) myocardial infarction: Code(s): I21.3 - ST elevation (STEMI) myocardial infarction of unspecified site Status: Acute Assessment and Plan: 1. CAD 2. Inf STEMI s/p PCI of mid-distal RCA, POBA PLV 3. HTN 4. Hyperlipidemia 5. Ischemic cardiomyopathy 6. Suspect delirium, has underlying dementia 7. Acute CVA Plan -will switch his Brilinta to Plavix because of the need for apixaban in light of AFib. Will give a loading dose as per protocol -continue statin -beta-ofe for rate control -he needs assessment of his left coronary system/left main coronary artery at a later date, will follow up with Discharge -regards to his CVA will decrease he will discontinue losartan for now to allow for permissive hypertension. Neurology to see. Continue duo biotic and Plavix and statin -with regards to his AFib will continue try to control his heart rate. Add apixaban for anticoagulation -with regards to his cardiomyopathy, we will hold losartan for now. Will keep him on metoprolol tartrate for now. Switch to succinate later. -regards to her delirium I suspect this is combination of underlying cognitive dysfunction and dementia as well as stroke. Will send urine culture and microscopy. Appreciate the input by the hospitalist team Subjective Date/time seen: 10/08/24 12:21 Interval history: Continues to remain confused Went into AFib RVR yesterday MRI done for confusion shows acute infarct in the left posterior parietal lobe Review of Systems Review of Systems: General: Negative for fever, chills, fatigue Psychological: Negative for anxiety, depression Ophthalmic: negative for loss of vision ENT: Negative for epistaxis, headaches Allergy and immunology: Negative for hives, nasal congestion Hematologic and lymphatic: Negative for overt bleeding problems Endocrine: Negative for hot flashes, palpitations Respiratory: Negative for cough, hemoptysis Cardiovascular: positive for severe chest pain Gastrointestinal: Negative for abdominal pain, nausea, vomiting, hematochezia Musculoskeletal: positive for joint pains Neurological: Negative for weakness Dermatological: Negative for rash, skin discoloration Exam Narrative: PHYSICAL EXAMINATION: GENERAL: Alert, appears in mild distress due to chest pain MENTAL STATUS: anxious EYES: Extraocular movements intact, no pallor EARS: External ears appear normal, hearing grossly normal NOSE: Normal and patent, no discharge MOUTH: Mucous membranes moist, tongue normal NECK: Supple, no JVD CHEST: Good respiratory effort, clear to auscultation HEART: Normal rate, regular rhythm with ectopic beats, S4 gallop ABDOMEN: Soft, nontender NEUROLOGICAL: Alert, oriented, normal speech, no gross motor deficits MUSCULOSKELETAL: No major deformity, no amputation EXTREMITIES: No pedal edema, no clubbing, no cyanosis SKIN: no rash on the exposed area, no cyanosis PSYCHIATRIC: Normal mood, appropriate affect Objective Data Vital Signs Vital Signs: Vital Signs - 24 hr 10/07/24 14:00 10/07/24 15:56 10/07/24 16:00 Temperature 36.3 C L Pulse Rate 78 118 H Respiratory Rate 20 Blood Pressure 105/79 Pulse Oximetry 96 Oxygen Delivery Room Air 10/07/24 16:00 10/07/24 16:26 10/07/24 18:00 Temperature Pulse Rate 123 H 127 H 129 H Respiratory Rate Blood Pressure Pulse Oximetry Oxygen Delivery 10/07/24 18:34 10/07/24 19:36 10/07/24 20:00 Temperature 36.6 C Pulse Rate 144 H 123 H Respiratory Rate 20 Blood Pressure 126/91 H Pulse Oximetry 91 Oxygen Delivery Room Air 10/07/24 20:00 10/07/24 22:00 10/07/24 22:15 Temperature Pulse Rate 111 H 106 H 107 H Respiratory Rate Blood Pressure Pulse Oximetry Oxygen Delivery 10/07/24 23:00 10/07/24 23:07 10/08/24 00:00 Temperature 36.7 C Pulse Rate 90 107 H Respiratory Rate 20 Blood Pressure 131/79 Pulse Oximetry 97 Oxygen Delivery Room Air 10/08/24 02:00 10/08/24 03:22 10/08/24 04:00 Temperature 37.1 C Pulse Rate 112 H 83 Respiratory Rate 18 Blood Pressure 110/67 Pulse Oximetry 94 Oxygen Delivery Room Air 10/08/24 04:00 10/08/24 04:49 10/08/24 06:00 Temperature 36.7 C Pulse Rate 80 74 84 Respiratory Rate 16 Blood Pressure Pulse Oximetry 96 Oxygen Delivery 10/08/24 08:00 10/08/24 08:00 10/08/24 08:00 Temperature 36.6 C Pulse Rate 86 80 Respiratory Rate 16 Blood Pressure 107/46 L Pulse Oximetry 96 Oxygen Delivery Room Air 10/08/24 08:17 10/08/24 08:56 10/08/24 10:08 Temperature Pulse Rate 81 73 Respiratory Rate Blood Pressure 96/59 L Pulse Oximetry Oxygen Delivery 10/08/24 11:31 10/08/24 11:36 Temperature 36.6 C Pulse Rate 71 Respiratory Rate 16 Blood Pressure 97/58 L 108/60 Pulse Oximetry 97 Oxygen Delivery Intake/Output Intake/Output: Intake & Output 10/05/24 10/06/24 10/07/24 10/08/24 23:59 23:59 23:59 23:59 Intake Total 680 840 240 Output Total 1200 1000 50 Balance -520 -160 190 Meds/Results Medications: Active Medications Generic Name Dose Route Start Last Admin Trade Name Freq PRN Reason Stop Dose Admin Apixaban 5 mg 10/08/24 09:00 10/08/24 10:18 Apixaban 5 Mg Tablet PO Not Given Q12HR [facility] Aspirin 81 mg 10/06/24 09:00 10/08/24 08:57 Aspirin 81 Mg Enteric Tablet PO 81 mg QAM [facility] Administration Atorvastatin Calcium 80 mg 10/05/24 22:55 10/08/24 08:57 Atorvastatin 40 Mg Tablet PO 80 mg DAILY [facility] Administration Clopidogrel Bisulfate 300 mg 10/08/24 21:00 Clopidogrel Bisulfate 300 Mg Tablet PO 10/08/24 21:01 ONCE ONE Clopidogrel Bisulfate 75 mg 10/09/24 09:00 Clopidogrel Bisulfate 75 Mg Tablet PO DAILY [facility] Furosemide 40 mg 10/07/24 09:00 10/08/24 08:57 Furosemide 40 Mg Tablet PO 40 mg DAILY [facility] Administration Losartan Potassium 12.5 mg 10/08/24 09:00 10/08/24 10:18 Losartan Potassium 12.5 Mg Tablet PO Not Given DAILY [facility] Metoprolol Tartrate 25 mg 10/07/24 18:10 10/08/24 08:56 Metoprolol Tartrate 25 Mg Tablet PO 25 mg Q12HR [facility] Administration Morphine Sulfate 4 mg 10/05/24 20:33 Morphine Sulfate (*Crx) 4 Mg/Ml Inj IV PUSH ONCE PRN Chest Pain Radiology Results: ITS Impressions Chest X-Ray 10/05/24 20:57 IMPRESSION: 1. Mild atelectasis at left lung base. Head CT 10/07/24 15:30 IMPRESSION: No acute intracranial process. Brain MRI 10/08/24 08:25 IMPRESSION: 7 mm acute infarct in the left posterior parietal lobe. Extensive chronic microvascular ischemic change and moderate generalized atrophy. Labs Labs: Laboratory Results - last 24 hr 10/07/24 10/07/24 12:17 14:50 WBC 10.9 H RBC 5.11 Hgb 16.5 Hct 48.0 MCV 93.9 MCH 32.3 MCHC 34.4 RDW 13.2 Plt Count 241 MPV 9.7 Sodium 132 L Potassium 3.8 Chloride 99 Carbon Dioxide 24 Anion Gap 9 BUN 24 H Creatinine 1.20 Estim Creat Clear Calc 53 Estimated GFR 58 L Glucose 179 H Calcium 9.1 Magnesium 1.7 Total Bilirubin 1.5 H AST 207 H ALT 44 Alkaline Phosphatase 47 Ammonia < 9 L Troponin I 23.800 H* Total Protein 7.0 Albumin 4.1 Vitamin B12 257.0 TSH (Reflex) 6.510 H Free T4 1.04 Total T3 0.87 L
--- NOTE | 2024-10-08 12:30 | P.PNIM_ITS ---
Progress Note: A&P Assessment and Plan (1) Confusion: Code(s): R41.0 - Disorientation, unspecified Status: Acute Assessment and Plan: He has reportedly had some short-term memory loss for couple of years and I suspect he may have mild cognitive impairment which has yet to be diagnosed. He is probably a bit confused now due to the hospitalization itself and medications that he received. He gives no history to suggest underlying infection. brain MRI revealed 7 mm acute infarct in the left posterior parietal lobe. Extensive chronic microvascular ischemic change and moderate generalized atrophy. Likely due to underlying atrial fibrillation Echo recently performed reviewed Will get ultrasound carotid duplex Continue on anticoagulation as ordered PT OT to see (2) Acute ST elevation myocardial infarction (STEMI) of inferior wall: Onset Date: 10/05/24 Code(s): I21.19 - ST elevation (STEMI) myocardial infarction involving other coronary artery of inferior wall Status: Acute Assessment and Plan: Status post angioplasty and drug-eluting stent to the RCA and angioplasty to RPL branch on 10/05/2024. On dual antiplatelet therapy, aspirin, Plavix and beta- ofe per Cardiology. (3) Atrial fibrillation with rapid ventricular response: Code(s): I48.91 - Unspecified atrial fibrillation Status: Acute Assessment and Plan: Patient went into rapid atrial fibrillation this afternoon and is asymptomatic. Received 0.5 mg digoxin per Cardiology. He is back to sinus rhythm. Started on anticoagulation with Eliquis. On metoprolol (4) Heart failure with mildly reduced ejection fraction: Code(s): I50.22 - Chronic systolic (congestive) heart failure Status: Acute Assessment and Plan: Echo showed reduced left and right ventricular systolic function with an estimated EF of 40-45% and grade 1 diastolic dysfunction. Appears clinically compensated at this time; management per Cardiology. (5) Hyperlipidemia: Code(s): E78.5 - Hyperlipidemia, unspecified Status: Acute Assessment and Plan: Continue high-intensity statin. AST is up a bit today, likely related to STEMI. (6) Hypertension: Qualifiers: Hypertension type: primary hypertension Qualified Code(s): I10 - Essential (primary) hypertension Code(s): I10 - Essential (primary) hypertension Status: Acute Assessment and Plan: Blood pressures were reviewed and they have been stable. (7) Prediabetes: Code(s): R73.03 - Prediabetes Status: Acute Assessment and Plan: Hemoglobin A1c is 6.0%. Weight loss and dietary changes encouraged. Consider SGLT 2 inhibitor. Subjective Date/time seen: 10/08/24 12:30 Interval history: no overnight events, no new complaints, no new complaints. no chest pain, sob. Review of Systems Review of Systems: All systems reviewed & are unremarkable except as noted in HPI and below Exam Narrative: General: Well-developed gentleman sitting in a chair at the side of the bed in no distress. HEENT: Wearing corrective lenses. PERRL, EOMI. Sclera anicteric. Oral mucosa moist. Neck: Supple. No JVD. Respiratory: Lungs are clear to auscultation bilaterally. Cardiovascular: regular rate and rhythm Gastrointestinal: Abdomen is soft, nontender, and nondistended with positive bowel sounds. Skin: Warm and dry. No rash or lesions on limited exam. Extremities: No cyanosis, clubbing, or edema. Radial and pedal pulses intact. Neurological: Alert and oriented x 3. Cranial nerves 2-12 are grossly intact. Speech is clear. No facial asymmetry. Hand agriscience technology instructor and foot pushes are equal bilaterally. No pronator drift. Normal [id number]. Gait not assessed. Psychiatric: Pleasant and cooperative. Appropriate mood. He is in good spirits. Objective Data Vital Signs Vital Signs: Vital Signs - 24 hr 10/07/24 14:00 10/07/24 15:56 10/07/24 16:00 Temperature 97.4 F L Pulse Rate 78 118 H Respiratory Rate 20 Blood Pressure 105/79 Pulse Oximetry 96 Oxygen Delivery Room Air 10/07/24 16:00 10/07/24 16:26 10/07/24 18:00 Temperature Pulse Rate 123 H 127 H 129 H Respiratory Rate Blood Pressure Pulse Oximetry Oxygen Delivery 10/07/24 18:34 10/07/24 19:36 10/07/24 20:00 Temperature 97.9 F Pulse Rate 144 H 123 H Respiratory Rate 20 Blood Pressure 126/91 H Pulse Oximetry 91 Oxygen Delivery Room Air 10/07/24 20:00 10/07/24 22:00 10/07/24 22:15 Temperature Pulse Rate 111 H 106 H 107 H Respiratory Rate Blood Pressure Pulse Oximetry Oxygen Delivery 10/07/24 23:00 10/07/24 23:07 10/08/24 00:00 Temperature 98.0 F Pulse Rate 90 107 H Respiratory Rate 20 Blood Pressure 131/79 Pulse Oximetry 97 Oxygen Delivery Room Air 10/08/24 02:00 10/08/24 03:22 10/08/24 04:00 Temperature 98.7 F Pulse Rate 112 H 83 Respiratory Rate 18 Blood Pressure 110/67 Pulse Oximetry 94 Oxygen Delivery Room Air 10/08/24 04:00 10/08/24 04:49 10/08/24 06:00 Temperature 98.1 F Pulse Rate 80 74 84 Respiratory Rate 16 Blood Pressure Pulse Oximetry 96 Oxygen Delivery 10/08/24 08:00 10/08/24 08:00 10/08/24 08:00 Temperature 97.8 F Pulse Rate 86 80 Respiratory Rate 16 Blood Pressure 107/46 L Pulse Oximetry 96 Oxygen Delivery Room Air 10/08/24 08:17 10/08/24 08:56 10/08/24 10:08 Temperature Pulse Rate 81 73 Respiratory Rate Blood Pressure 96/59 L Pulse Oximetry Oxygen Delivery 10/08/24 11:31 10/08/24 11:36 Temperature 98 F Pulse Rate 71 Respiratory Rate 16 Blood Pressure 97/58 L 108/60 Pulse Oximetry 97 Oxygen Delivery Intake/Output Intake/Output: Intake & Output 10/05/24 10/06/24 10/07/24 10/08/24 23:59 23:59 23:59 23:59 Intake Total 680 840 240 Output Total 1200 1000 50 Balance -520 -160 190 Meds/Results Medications: Active Medications Generic Name Dose Route Start Last Admin Trade Name Freq PRN Reason Stop Dose Admin Apixaban 5 mg 10/08/24 09:00 10/08/24 10:18 Apixaban 5 Mg Tablet PO Not Given Q12HR [facility] Aspirin 81 mg 10/06/24 09:00 10/08/24 08:57 Aspirin 81 Mg Enteric Tablet PO 81 mg QAM [facility] Administration Atorvastatin Calcium 80 mg 10/05/24 22:55 10/08/24 08:57 Atorvastatin 40 Mg Tablet PO 80 mg DAILY [facility] Administration Clopidogrel Bisulfate 300 mg 10/08/24 21:00 Clopidogrel Bisulfate 300 Mg Tablet PO 10/08/24 21:01 ONCE ONE Clopidogrel Bisulfate 75 mg 10/09/24 09:00 Clopidogrel Bisulfate 75 Mg Tablet PO DAILY [facility] Furosemide 40 mg 10/07/24 09:00 10/08/24 08:57 Furosemide 40 Mg Tablet PO 40 mg DAILY [facility] Administration Losartan Potassium 12.5 mg 10/08/24 09:00 10/08/24 10:18 Losartan Potassium 12.5 Mg Tablet PO Not Given DAILY [facility] Metoprolol Tartrate 25 mg 10/07/24 18:10 10/08/24 08:56 Metoprolol Tartrate 25 Mg Tablet PO 25 mg Q12HR [facility] Administration Morphine Sulfate 4 mg 10/05/24 20:33 Morphine Sulfate (*Crx) 4 Mg/Ml Inj IV PUSH ONCE PRN Chest Pain Radiology Results: ITS Impressions Chest X-Ray 10/05/24 20:57 IMPRESSION: 1. Mild atelectasis at left lung base. Head CT 10/07/24 15:30 IMPRESSION: No acute intracranial process. Brain MRI 10/08/24 08:25 IMPRESSION: 7 mm acute infarct in the left posterior parietal lobe. Extensive chronic microvascular ischemic change and moderate generalized atrophy. Labs Labs: Laboratory Results - last 24 hr 10/07/24 10/07/24 12:17 14:50 WBC 10.9 H RBC 5.11 Hgb 16.5 Hct 48.0 MCV 93.9 MCH 32.3 MCHC 34.4 RDW 13.2 Plt Count 241 MPV 9.7 Sodium 132 L Potassium 3.8 Chloride 99 Carbon Dioxide 24 Anion Gap 9 BUN 24 H Creatinine 1.20 Estim Creat Clear Calc 53 Estimated GFR 58 L Glucose 179 H Calcium 9.1 Magnesium 1.7 Total Bilirubin 1.5 H AST 207 H ALT 44 Alkaline Phosphatase 47 Ammonia < 9 L Troponin I 23.800 H* Total Protein 7.0 Albumin 4.1 Vitamin B12 257.0 TSH (Reflex) 6.510 H Free T4 1.04 Total T3 0.87 L
--- NOTE | 2024-10-08 12:31 | PC.NURSE ---
This patient, Иван Briceno, was transferred to [facility] [facility] on 10/08/24 at 1212. Personal belongings sent with patient. Report given to Chana DIAZ. Appropriate documentation sent with patient.
[2024-10-08 14:38] LABS: Add Urine Microscopic? NO; Appearance Urine Clear (Clear); Bilirubin Urine Negative (Negative); Blood Urine Negative (Negative); Color Urine Yellow (Yellow); Glucose Urine UA Negative (Negative); Ketones Urine Trace mg/dL (Negative); Leukocyte Esterase Ur Negative LEU/UL (Negative); Nitrate Urine Negative (Negative); Protein Urine Negative (Negative); pH Urine 5.5 (5.0-9.0)
[2024-10-08] MEDS: APIXABAN 5 MG TABLET PO (20:38)
[2024-10-08] MEDS: CLOPIDOGREL BISULFATE 300 MG TABLET PO (20:39)
[2024-10-09] VITALS (12 sets, daily range): BP systolic 101–121; BP diastolic 50–72; PULSE 63–98; RESP 16–18; TEMP 36.1–36.8; O2SAT 92–96
[2024-10-09 06:30] LABS: Basophils Absolute Auto 0.1 K/mm3 (0.0-0.1); Basophils Percent Auto 0.8 % (0.2-1.2); Eosinophils Absolute Auto 0.2 K/mm3 (0-0.3); Eosinophils Percent Auto 2.4 % (0-4.4); Hematocrit 50.3 % (42.0-52.0); Hemoglobin 16.6 g/dL (14.0-18.0); Immature Granulocyte Absolute 0.05 K/mm3 (0.00-0.031); Immature Granulocyte Percent A 0.5 % (0-0.5); Lymphocytes Absolute Auto 1.53 K/mm3 (0.9-3.2); Lymphocytes Percent Auto 16.5 % (18.3-44.2); Mean Corpuscular Hemoglobin 31.5 pg (26-34); Mean Corpuscular Volume 95.4 fl (80-100); Mean Platelet Volume 9.7 fl (7.4-10.4); Monocytes Absolute Auto 1.3 K/mm3 (0.1-0.6); Monocytes Percent Auto 13.5 % (2.6-8.5); Neutrophils Absolute Auto 6.2 K/mm3 (1.3-6.7); Neutrophils Percent Auto 66.3 % (45.5-73.1); Platelet Count Result 227 k/mm3 (150-375); Red Blood Count 5.27 M/mm3 (4.6-6.20); Red Cell Distribution Width 13.4 % (11.5-14.5); White Blood Count 9.3 K/mm3 (4.5-10.0)
[2024-10-09 06:46] LABS: Alanine Aminotransferase 38 U/L (6-50); Albumin Level 3.6 g/dL (3.5-5.1); Alkaline Phosphatase 55 U/L (38-126); Anion Gap 5 mmol/L (4-12); Aspartate Amino Transferase 80 U/L (17-59); Bilirubin,Total 1.5 mg/dL (0.2-1.3); Blood Urea Nitrogen 44 mg/dL (9-20); Calcium 8.5 mg/dL (8.4-10.2); Carbon Dioxide 32 mmol/L (22-30); Chloride 97 mmol/L (98-107); Estimated CRCL calculation 36 ml/min; Estimated Glomerular Filt Rate 36; Glucose 96 mg/dL (65-110); Magnesium 2.1 mg/dL (1.6-2.3); Potassium 4.2 mmol/L (3.4-5.0); Sodium 134 mmol/L (137-145)
--- NOTE | 2024-10-09 08:45 | PCOTNOTE ---
Attempted OT evaluation, unable to wake patient up. Per family report, patient is most confused in morning. Will follow.
[2024-10-09] MEDS: APIXABAN 5 MG TABLET PO ×2 (09:42→20:38)
[2024-10-09] MEDS: METOPROLOL TARTRATE 25 MG TABLET PO ×2 (09:42→20:38)
[2024-10-09] MEDS: ASPIRIN 81 MG ENTERIC TABLET PO (09:42)
[2024-10-09] MEDS: CLOPIDOGREL BISULFATE 75 MG TABLET PO (09:42)
[2024-10-09] MEDS: ATORVASTATIN 40 MG TABLET 80 MG PO (09:43)
--- NOTE | 2024-10-09 11:46 | PM.IMPN ---
Progress Note: A&P Assessment and Plan (1) Confusion: Code(s): R41.0 - Disorientation, unspecified Status: Acute Assessment and Plan: He has reportedly had some short-term memory loss for couple of years and I suspect he may have mild cognitive impairment which has yet to be diagnosed. He is probably a bit confused now due to the hospitalization itself and medications that he received. He gives no history to suggest underlying infection. brain MRI revealed 7 mm acute infarct in the left posterior parietal lobe. Extensive chronic microvascular ischemic change and moderate generalized atrophy. Likely due to underlying atrial fibrillation Echo recently performed reviewed Carotid sound unremarkable Continue on anticoagulation as ordered PT OT to see (2) Acute ST elevation myocardial infarction (STEMI) of inferior wall: Onset Date: 10/05/24 Code(s): I21.19 - ST elevation (STEMI) myocardial infarction involving other coronary artery of inferior wall Status: Acute Assessment and Plan: Status post angioplasty and drug-eluting stent to the RCA and angioplasty to RPL branch on 10/05/2024. On dual antiplatelet therapy, aspirin, Plavix and beta-ofe per Cardiology. (3) Atrial fibrillation with rapid ventricular response: Code(s): I48.91 - Unspecified atrial fibrillation Status: Acute Assessment and Plan: Patient went into rapid atrial fibrillation this afternoon and is asymptomatic. Received 0.5 mg digoxin per Cardiology. He is back to sinus rhythm. Started on anticoagulation with Eliquis. On metoprolol (4) Heart failure with mildly reduced ejection fraction: Code(s): I50.22 - Chronic systolic (congestive) heart failure Status: Acute Assessment and Plan: Echo showed reduced left and right ventricular systolic function with an estimated EF of 40-45% and grade 1 diastolic dysfunction. Appears clinically compensated at this time; management per Cardiology. (5) Hyperlipidemia: Code(s): E78.5 - Hyperlipidemia, unspecified Status: Acute Assessment and Plan: Continue high-intensity statin. AST is up a bit today, likely related to STEMI. (6) Hypertension: Qualifiers: Hypertension type: primary hypertension Qualified Code(s): I10 - Essential (primary) hypertension Code(s): I10 - Essential (primary) hypertension Status: Acute Assessment and Plan: Blood pressures were reviewed and they have been stable. (7) Prediabetes: Code(s): R73.03 - Prediabetes Status: Acute Assessment and Plan: Hemoglobin A1c is 6.0%. Weight loss and dietary changes encouraged. Consider SGLT 2 inhibitor. Plan ROMINA: Creatinine 1.8. Hold losartan And Lasix. Recheck in a.m. Subjective Date/time seen: 10/09/24 11:46 Interval history: Confusion has improved. at bedside. Discussed with her. Denies any chest pain or shortness of breath. Due to see Review of Systems Review of Systems: All systems reviewed & are unremarkable except as noted in HPI and below Exam Narrative: General: Well-developed gentleman, in no distress. HEENT: Wearing corrective lenses. PERRL, EOMI. Sclera anicteric. Oral mucosa moist. Neck: Supple. No JVD. Respiratory: Lungs are clear to auscultation bilaterally. Cardiovascular: regular rate and rhythm Gastrointestinal: Abdomen is soft, nontender, and nondistended with positive bowel sounds. Skin: Warm and dry. No rash or lesions on limited exam. Extremities: No cyanosis, clubbing, or edema. Radial and pedal pulses intact. Neurological: Alert and oriented x 3. Cranial nerves 2-12 are grossly intact. Speech is clear. No facial asymmetry. Hand access services assistant and foot pushes are equal bilaterally. No pronator drift. Normal [id number]. Gait not assessed. Psychiatric: Pleasant and cooperative. Appropriate mood. He is in good spirits. Objective Data Vital Signs Vital Signs: Vital Signs - 24 hr 10/08/24 15:00 10/08/24 16:00 10/08/24 20:00 Temperature 97.4 F L 97.8 F Pulse Rate 69 70 83 Respiratory Rate 16 16 Blood Pressure 96/63 L 107/75 Pulse Oximetry 93 94 Oxygen Delivery 10/08/24 20:00 10/08/24 20:00 10/09/24 00:00 Temperature 98.2 F Pulse Rate 83 84 65 Respiratory Rate 16 16 Blood Pressure 110/72 Pulse Oximetry 94 94 Oxygen Delivery Room Air 10/09/24 00:00 10/09/24 04:00 10/09/24 04:00 Temperature Pulse Rate 70 66 66 Respiratory Rate Blood Pressure Pulse Oximetry Oxygen Delivery 10/09/24 06:28 10/09/24 08:25 10/09/24 09:42 Temperature 97.7 F 98.2 F Pulse Rate 67 63 71 Respiratory Rate 16 17 Blood Pressure 111/62 121/65 Pulse Oximetry 94 92 Oxygen Delivery Intake/Output Intake/Output: Intake & Output 10/06/24 10/07/24 10/08/24 10/09/24 23:59 23:59 23:59 23:59 Intake Total 680 840 290 490 Output Total 1200 1000 450 100 Balance -520 -160 -160 390 Meds/Results Medications: Active Medications Generic Name Dose Route Start Last Admin Trade Name Freq PRN Reason Stop Dose Admin Apixaban 5 mg 10/08/24 09:00 10/09/24 09:42 Apixaban 5 Mg Tablet PO 5 mg Q12HR [facility] Administration Aspirin 81 mg 10/06/24 09:00 10/09/24 09:42 Aspirin 81 Mg Enteric Tablet PO 81 mg QAM [facility] Administration Atorvastatin Calcium 80 mg 10/05/24 22:55 10/09/24 09:43 Atorvastatin 40 Mg Tablet PO 80 mg DAILY [facility] Administration Clopidogrel Bisulfate 75 mg 10/09/24 09:00 10/09/24 09:42 Clopidogrel Bisulfate 75 Mg Tablet PO 75 mg DAILY [facility] Administration Furosemide 40 mg 10/07/24 09:00 10/08/24 08:57 Furosemide 40 Mg Tablet PO 40 mg DAILY [facility] Administration Losartan Potassium 12.5 mg 10/08/24 09:00 10/08/24 10:18 Losartan Potassium 12.5 Mg Tablet PO Not Given DAILY [facility] Metoprolol Tartrate 25 mg 10/07/24 18:10 10/09/24 09:42 Metoprolol Tartrate 25 Mg Tablet PO 25 mg Q12HR [facility] Administration Morphine Sulfate 4 mg 10/05/24 20:33 Morphine Sulfate (*Crx) 4 Mg/Ml Inj IV PUSH ONCE PRN Chest Pain Radiology Results: ITS Impressions Chest X-Ray 10/05/24 20:57 IMPRESSION: 1. Mild atelectasis at left lung base. Head CT 10/07/24 15:30 IMPRESSION: No acute intracranial process. Brain MRI 10/08/24 08:25 IMPRESSION: 7 mm acute infarct in the left posterior parietal lobe. Extensive chronic microvascular ischemic change and moderate generalized atrophy. Carotid Doppler Study 10/09/24 06:37 Impression: No hemodynamically significant stenosis of the bilateral internal carotid arteries. Antegrade flow in the bilateral vertebral arteries. Note: The methodology used is an indirect measurement validated against a direct method (such as the NASCET criteria) that compares diameters at the stenosis to the distal ICA. Labs Labs: Laboratory Results - last 24 hr 10/08/24 10/09/24 14:27 06:13 WBC 9.3 RBC 5.27 Hgb 16.6 Hct 50.3 MCV 95.4 MCH 31.5 MCHC 33.0 RDW 13.4 Plt Count 227 MPV 9.7 Immature Gran % (Auto) 0.5 Neut % (Auto) 66.3 Lymph % (Auto) 16.5 L [place] % (Auto) 13.5 H Eos % (Auto) 2.4 Baso % (Auto) 0.8 Lymph # (Auto) 1.53 [place] # (Auto) 1.3 H Eos # (Auto) 0.2 Baso # (Auto) 0.1 Abs Immat Gran (auto) 0.05 H Absolute Neuts (auto) 6.2 Absolute Nucleated RBC 0.000 Nucleated RBC % 0.0 Sodium 134 L Potassium 4.2 Chloride 97 L Carbon Dioxide 32 H Anion Gap 5 BUN 44 H D Creatinine 1.80 H Estim Creat Clear Calc 36 Estimated GFR 36 L Glucose 96 Calcium 8.5 Magnesium 2.1 Total Bilirubin 1.5 H AST 80 H ALT 38 Alkaline Phosphatase 55 Total Protein 7.0 Albumin 3.6 Urine Color Yellow Urine Appearance Clear Urine pH 5.5 Ur Specific [place] 1.020 Urine Protein Negative Urine Glucose (UA) Negative Urine Ketones Trace H Ur Blood (Man) Negative Urine Nitrate Negative Urine Bilirubin Negative Urine Urobilinogen 1.0 Ur Leukocyte Esterase Negative
--- NOTE | 2024-10-09 13:01 | P.PNCA_ITS ---
Progress Note: A&P Assessment and Plan (1) ST elevation (STEMI) myocardial infarction: Code(s): I21.3 - ST elevation (STEMI) myocardial infarction of unspecified site Status: Acute Assessment and Plan: 1. CAD 2. Inf STEMI s/p PCI of mid-distal RCA, POBA PLV 3. HTN 4. Hyperlipidemia 5. Ischemic cardiomyopathy 6. Suspect delirium, has underlying dementia 7. Acute CVA Plan -Continue DAPT with ASA, Plavix (shifted to Plavix because of addition of eliquis) -continue statin -beta-ofe for rate control -he needs assessment of his left coronary system/left main coronary artery at a later date, will follow up with Discharge -regards to his CVA losartan on hold for now to allow for permissive hypertension. Neurology to see. Continue duo biotic and Plavix and statin -with regards to his AFib he is back in sinus rhythm. Continue apixaban for anticoagulation -with regards to his cardiomyopathy, we will hold losartan for now. Will keep him on metoprolol tartrate for now. Switch to succinate later. -Delirium has resolved. Neurology consulted. -Anticipate discharge to SNF tomorrow Subjective Date/time seen: 10/09/24 13:01 Interval history: Cardiology follow up visit He is feeling well this afternoon and has no active complaints. He denies chest pain, palpitations, [id number], edema. Stable overall. Review of Systems Review of Systems: General: Negative for fever, chills, fatigue Psychological: Negative for anxiety, depression Ophthalmic: negative for loss of vision ENT: Negative for epistaxis, headaches Allergy and immunology: Negative for hives, nasal congestion Hematologic and lymphatic: Negative for overt bleeding problems Endocrine: Negative for hot flashes, palpitations Respiratory: Negative for cough, hemoptysis Cardiovascular: positive for severe chest pain Gastrointestinal: Negative for abdominal pain, nausea, vomiting, hematochezia Musculoskeletal: positive for joint pains Neurological: Negative for weakness Dermatological: Negative for rash, skin discoloration Exam Const: General: comfortable, no acute distress, alert and awake Orientation/consciousness: patient oriented x3 HENMT: Head: normal to inspection Eyes: General: appearance normal, both eyes and all related structures Pupils: Equal, round and reactive pupils present Neck: Neck: normal visual inspection, supple and no JVD Carotids: normal carotid upstroke Resp: Effort & Inspection: normal respiratory effort Auscultation: clear to auscultation bilaterally Cardio: Rate: regular rate Rhythm: regular rhythm Heart sounds: S1 normal heart sound present, S2 normal heart sound present and no murmurs GI: Auscultation: normal bowel sounds Skin: General skin exam: normal color Neuro: General: patient oriented x3 Cranial nerves: Yes Equal, round and reactive pupils present Extrem: General: normal to inspection Psych: Appearance: grossly normal Mental Status: mental status grossly normal Objective Data Vital Signs Vital Signs: Vital Signs - 24 hr 10/08/24 15:00 10/08/24 16:00 10/08/24 20:00 Temperature 36.3 C L 36.6 C Pulse Rate 69 70 83 Respiratory Rate 16 16 Blood Pressure 96/63 L 107/75 Pulse Oximetry 93 94 Oxygen Delivery 10/08/24 20:00 10/08/24 20:00 10/09/24 00:00 Temperature 36.8 C Pulse Rate 83 84 65 Respiratory Rate 16 16 Blood Pressure 110/72 Pulse Oximetry 94 94 Oxygen Delivery Room Air 10/09/24 00:00 10/09/24 04:00 10/09/24 04:00 Temperature Pulse Rate 70 66 66 Respiratory Rate Blood Pressure Pulse Oximetry Oxygen Delivery 10/09/24 06:28 10/09/24 08:25 10/09/24 09:42 Temperature 36.5 C 36.8 C Pulse Rate 67 63 71 Respiratory Rate 16 17 Blood Pressure 111/62 121/65 Pulse Oximetry 94 92 Oxygen Delivery 10/09/24 11:17 10/09/24 11:56 Temperature 36.8 C Pulse Rate 70 Respiratory Rate 17 Blood Pressure 101/50 L Pulse Oximetry 95 Oxygen Delivery Room Air Intake/Output Intake/Output: Intake & Output 10/06/24 10/07/24 10/08/24 10/09/24 23:59 23:59 23:59 23:59 Intake Total 680 840 290 490 Output Total 1200 1000 450 100 Balance -520 -160 -160 390 Meds/Results Medications: Active Medications Generic Name Dose Route Start Last Admin Trade Name Freq PRN Reason Stop Dose Admin Apixaban 5 mg 10/08/24 09:00 10/09/24 09:42 Apixaban 5 Mg Tablet PO 5 mg Q12HR CLIFF Administration Aspirin 81 mg 10/06/24 09:00 10/09/24 09:42 Aspirin 81 Mg Enteric Tablet PO 81 mg QAM CLIFF Administration Atorvastatin Calcium 80 mg 10/05/24 22:55 10/09/24 09:43 Atorvastatin 40 Mg Tablet PO 80 mg DAILY CLIFF Administration Clopidogrel Bisulfate 75 mg 10/09/24 09:00 10/09/24 09:42 Clopidogrel Bisulfate 75 Mg Tablet PO 75 mg DAILY CLIFF Administration Furosemide 40 mg 10/07/24 09:00 10/08/24 08:57 Furosemide 40 Mg Tablet PO 40 mg DAILY CLIFF Administration Losartan Potassium 12.5 mg 10/08/24 09:00 10/08/24 10:18 Losartan Potassium 12.5 Mg Tablet PO Not Given DAILY CLIFF Metoprolol Tartrate 25 mg 10/07/24 18:10 10/09/24 09:42 Metoprolol Tartrate 25 Mg Tablet PO 25 mg Q12HR CLIFF Administration Morphine Sulfate 4 mg 10/05/24 20:33 Morphine Sulfate (*Crx) 4 Mg/Ml Inj IV PUSH ONCE PRN Chest Pain Radiology Results: ITS Impressions Chest X-Ray 10/05/24 20:57 IMPRESSION: 1. Mild atelectasis at left lung base. Head CT 10/07/24 15:30 IMPRESSION: No acute intracranial process. Brain MRI 10/08/24 08:25 IMPRESSION: 7 mm acute infarct in the left posterior parietal lobe. Extensive chronic microvascular ischemic change and moderate generalized atro phy. Carotid Doppler Study 10/09/24 06:37 Impression: No hemodynamically significant stenosis of the bilateral internal carotid arteries. Antegrade flow in the bilateral vertebral arteries. Note: The methodology used is an indirect measurement validated against a direct method (such as the NASCET criteria) that compares diameters at the stenosis to the distal ICA. Labs Labs: Laboratory Results - last 24 hr 10/08/24 10/09/24 14:27 06:13 WBC 9.3 RBC 5.27 Hgb 16.6 Hct 50.3 MCV 95.4 MCH 31.5 MCHC 33.0 RDW 13.4 Plt Count 227 MPV 9.7 Immature Gran % (Auto) 0.5 Neut % (Auto) 66.3 Lymph % (Auto) 16.5 L [place] % (Auto) 13.5 H Eos % (Auto) 2.4 Baso % (Auto) 0.8 Lymph # (Auto) 1.53 [place] # (Auto) 1.3 H Eos # (Auto) 0.2 Baso # (Auto) 0.1 Abs Immat Gran (auto) 0.05 H Absolute Neuts (auto) 6.2 Absolute Nucleated RBC 0.000 Nucleated RBC % 0.0 Sodium 134 L Potassium 4.2 Chloride 97 L Carbon Dioxide 32 H Anion Gap 5 BUN 44 H D Creatinine 1.80 H Estim Creat Clear Calc 36 Estimated GFR 36 L Glucose 96 Calcium 8.5 Magnesium 2.1 Total Bilirubin 1.5 H AST 80 H ALT 38 Alkaline Phosphatase 55 Total Protein 7.0 Albumin 3.6 Urine Color Yellow Urine Appearance Clear Urine pH 5.5 Ur Specific [place] 1.020 Urine Protein Negative Urine Glucose (UA) Negative Urine Ketones Trace H Ur Blood (Man) Negative Urine Nitrate Negative Urine Bilirubin Negative Urine Urobilinogen 1.0 Ur Leukocyte Esterase Negative Quality VTE Prophylaxis VTE prophylaxis: mechanical ordered
--- NOTE | 2024-10-09 13:09 | PCPTNOTE ---
Attempted PT evaluation, pt's spouse declined for pt due to pt sleeping. Nursing aware. Will follow.
--- NOTE | 2024-10-09 18:11 | WPDNEURCNPN ---
Assessment and Plan Assessment and plan (1) MCI (mild cognitive impairment): Code(s): G31.84 - Mild cognitive impairment of uncertain or unknown etiology Status: Acute (2) Cerebrovascular disease: Code(s): I67.9 - Cerebrovascular disease, unspecified Status: Acute (3) Vascular dementia: Code(s): F01.50 - Vascular dementia, unspecified severity, without behavioral disturbance, psychotic disturbance, mood disturbance, and anxiety Status: Acute (4) Acute ST elevation myocardial infarction (STEMI) of inferior wall: Onset Date: 10/05/24 Code(s): I21.19 - ST elevation (STEMI) myocardial infarction involving other coronary artery of inferior wall Status: Acute (5) Atrial fibrillation with rapid ventricular response: Code(s): I48.91 - Unspecified atrial fibrillation Status: Acute (6) Hyperlipidemia: Code(s): E78.5 - Hyperlipidemia, unspecified Status: Acute (7) Prediabetes: Code(s): R73.03 - Prediabetes Status: Acute Plan The patient already on antiplatelets in addition to anticoagulation for atrial fibrillation and a statins and is being followed by paramedic supervisor. I will suggest Namenda 5 mg a day in view of the cognitive impairment noted on my examination and we can follow it up in my office later on. Since he is on dual antiplatelets and anticoagulation he should be observed closely for any risk of bleeding but I realized he has been through a lot in the past few days in view of his cardiac condition in addition to having been found to have a parietal infarct. MRI of the brain does show extensive white matter changes in addition to the acute infarct in the left posterior parietal area. I would suggest we can hold of aspirin while we continue with the Plavix of course which will verify this with a paramedic supervisor. Consult date: 10/09/24 HPI: Иван Briceno is a 78 year old male with history of memory loss was seen for initial neurological evaluation. Patient has history of atrial fibrillation in is on anticoagulation. There is also history of coronary artery disease and congestive cardiac failure. Other relevant concurrent medical issues include is a liver enzymes show AST was elevated at 207, GFR low at 58, LDL high at 134 TSH high at 6.9, A1c high at 6.0. MRI of the brain shows acute infarct in the left posterior parietal area. has noted some decline in the memory in the last 2 years however overall he is independent and able to take care of himself. According to the patient's the get up in the morning and at breakfast table the both remember the date and the day and the test to be done for the day and off the go with the the daily routine. This support each other fairly well. His started on dual antiplatelets and also on anticoagulation in view of the development of atrial fibrillation after stenting. Review of Systems Review of Systems: All systems reviewed & are unremarkable except as noted in HPI and below [facility] Past Medical History Medical History (Updated 10/09/24 @ 18:25 by Caterina Costello MD) Vascular dementia Cerebrovascular disease MCI (mild cognitive impairment) Heart failure with mildly reduced ejection fraction Prediabetes Hemoglobin A1c was 6% on 10/05/2024 Hypertension Macular degeneration Arthritis Acute ST elevation myocardial infarction (STEMI) of inferior wall (10/05/24) Coronary artery disease Hyperlipidemia Surgical History Surgical History History of coronary angioplasty with insertion of stent (10/05/24) balloon angioplasty and stenting of subtotal occlusion of mid distal RCA in overlapping fashion and balloon angioplasty of subtotal occlusion in the RPL branch per Dr. Sultana Family History Family History Father Cancer Mother Hypertension Sibling H/O cardiac catheterization Social History Social History Social History: Surrogate medical decision maker: Son Briceno (son) or Lety Briceno (spouse). Code status: Full code. Smoking packs per day: 1 Smoking cigarettes per day: 20.0 Smoking status: Former smoker Tobacco type: cigarettes Smoking end date: 10/25/81 Alcohol intake: current Drinks per week: 7 Substance use: never Substance use type: does not use Do You Feel Safe in your Home?: Yes Lack of Transportation: No Lack of Food: Never True Current Housing: I Have Housing Concerned About Future Housing: No Difficulty Paying Gas/Electric Bills: No Difficulty Paying for Meds: No Currently Unemployed: No Education: Decline to Answer Difficulty w/ Childcare or Family Care: No Living arrangements: with family Additional living arrangements comments: Lives with spouse in [place]. Occupation/Education: retired Additional occupation/education comments: [employer]. Spiritual care concerns: No Meds Home Medications and Allergies Home Medications ?Medication ?Instructions ?Recorded ?Confirmed ?Type glucosamine-chondroitin 250 mg-200 2 tablet PO DAILY 11/16/21 10/05/24 History mg tablet (Osteo Bi-Flex) omega 2-zqu-udg-fish oil 1,000 mg 1 cap PO BID 11/16/21 10/05/24 History (120 mg-180 mg) capsule (Fish Oil) cetirizine 10 mg tablet (Zyrtec) 10 mg PO HS 04/22/22 10/05/24 History losartan 50 mg tablet 1 tablet PO HS 04/22/22 10/05/24 History ibuprofen 800 mg tablet 600 mg PO TID PRN Pain 07/02/22 10/05/24 History carboxymethylcellulose sodium 1 % 1 drp EACH EYE TID 10/05/24 10/05/24 History eye liquid gel drops (Refresh Liquigel) aspirin 81 mg tablet,delayed 81 mg PO QAM 30 days #30 tabs 10/06/24 Rx release atorvastatin 40 mg tablet 80 mg (2 x 40 mg) PO DAILY 30 days 10/06/24 Rx #60 tabs carvedilol 12.5 mg tablet (Coreg) 12.5 mg PO Q12HR 30 days #60 tabs 10/06/24 Rx losartan 50 mg tablet (Cozaar) 50 mg PO DAILY 30 days #30 tabs 10/06/24 Rx Allergies Allergy/AdvReac Type Severity Reaction Status Date / Time No Known Allergies Allergy Verified 11/16/21 08:59 Vital Signs Vital Signs - 24 hr 10/08/24 20:00 10/08/24 20:00 10/08/24 20:00 Temperature 97.8 F Pulse Rate 83 83 84 Respiratory Rate 16 16 Blood Pressure 107/75 Pulse Oximetry 94 94 Oxygen Delivery Room Air 10/09/24 00:00 10/09/24 00:00 10/09/24 04:00 Temperature 98.2 F Pulse Rate 65 70 66 Respiratory Rate 16 Blood Pressure 110/72 Pulse Oximetry 94 Oxygen Delivery 10/09/24 04:00 10/09/24 06:28 10/09/24 08:00 Temperature 97.7 F Pulse Rate 66 67 66 Respiratory Rate 16 Blood Pressure 111/62 Pulse Oximetry 94 Oxygen Delivery 10/09/24 08:25 10/09/24 09:40 10/09/24 09:42 Temperature 98.2 F Pulse Rate 63 71 Respiratory Rate 17 Blood Pressure 121/65 Pulse Oximetry 92 Oxygen Delivery Room Air 10/09/24 11:17 10/09/24 11:56 10/09/24 12:00 Temperature 98.3 F Pulse Rate 70 70 Respiratory Rate 17 Blood Pressure 101/50 L Pulse Oximetry 95 Oxygen Delivery Room Air 10/09/24 16:00 10/09/24 17:08 Temperature 97.0 F L Pulse Rate 63 63 Respiratory Rate 17 Blood Pressure 103/69 Pulse Oximetry 96 Oxygen Delivery Exam Narrative: Fully conscious alert oriented to self time place and person. No aphasia or dysarthria. He knew the month and the year but unable to tell me the day of the week. When asked to name 5 cities he did 3/5 when asked to name 5 colors he did 5/5 the os to day 5 restaurant he did 1/5 when asked to name 5 past president he did 4/5. He is able to follow 1 and two-step commands. Exam head and neck shows no evidence of external trauma. No nuchal rigidity. No carotid bruit. Cranial nerves pupils were equal react to light. Visual chin and extraocular movements intact. There is no facial asymmetry. Facial sensation intact. Tongue was midline. Other cranial nerves within normal limits. Motor system normal power and tone in both upper and lower limbs. Deep tendon reflexes did not show any asymmetry. Sensory and [place] grossly intact. No intention tremor or cogwheeling. However during gait testing while turning he seems to lose his balance easily. Results Labs 10/09/24 06:13 10/09/24 06:13 Labs: Short CBC 10/09/24 Range/Units 06:13 WBC 9.3 (4.5-10.0) K/mm3 Hgb 16.6 (14.0-18.0) g/dL Hct 50.3 (42.0-52.0) % Plt Count 227 (150-375) k/mm3 [facility] 10/09/24 06:13 Sodium 134 L Potassium 4.2 Chloride 97 L Carbon Dioxide 32 H BUN 44 H D Creatinine 1.80 H Glucose 96 Calcium 8.5 Liver Function 10/09/24 Range/Units 06:13 Total Bilirubin 1.5 H (0.2-1.3) mg/dL AST 80 H (17-59) U/L ALT 38 (6-50) U/L Alkaline Phosphatase 55 (38-126) U/L Albumin 3.6 (3.5-5.1) g/dL
[2024-10-09 20:19] LABS: Vitamin D 25 Hydroxy 39.1 ng/mL
[2024-10-09 20:29] LABS: Folic Acid > 20.0 ng/mL (2.76->20)
[2024-10-10] VITALS: PULSE 61
[2024-10-10 04:00] VITALS: PULSE 69
[2024-10-10 05:10] LABS: Basophils Absolute Auto 0.1 K/mm3 (0.0-0.1); Basophils Percent Auto 0.8 % (0.2-1.2); Eosinophils Absolute Auto 0.3 K/mm3 (0-0.3); Eosinophils Percent Auto 2.2 % (0-4.4); Hematocrit 47.9 % (42.0-52.0); Hemoglobin 16.2 g/dL (14.0-18.0); Immature Granulocyte Absolute 0.04 K/mm3 (0.00-0.031); Immature Granulocyte Percent A 0.3 % (0-0.5); Lymphocytes Absolute Auto 1.51 K/mm3 (0.9-3.2); Lymphocytes Percent Auto 13.1 % (18.3-44.2); Mean Corpuscular HGB Conc 33.8 g/dl (32-36); Mean Corpuscular Volume 94.7 fl (80-100); Mean Platelet Volume 9.7 fl (7.4-10.4); Monocytes Absolute Auto 1.5 K/mm3 (0.1-0.6); Monocytes Percent Auto 12.7 % (2.6-8.5); Neutrophils Absolute Auto 8.2 K/mm3 (1.3-6.7); Neutrophils Percent Auto 70.9 % (45.5-73.1); Platelet Count Result 253 k/mm3 (150-375); Red Blood Count 5.06 M/mm3 (4.6-6.20); Red Cell Distribution Width 13.2 % (11.5-14.5); White Blood Count 11.5 K/mm3 (4.5-10.0)
[2024-10-10 05:41] LABS: Anion Gap 4 mmol/L (4-12); Blood Urea Nitrogen 42 mg/dL (9-20); Calcium 8.4 mg/dL (8.4-10.2); Carbon Dioxide 29 mmol/L (22-30); Chloride 99 mmol/L (98-107); Estimated CRCL calculation 42 ml/min; Estimated Glomerular Filt Rate 45; Glucose 102 mg/dL (65-110); Magnesium 2.2 mg/dL (1.6-2.3); Potassium 3.9 mmol/L (3.4-5.0); Sodium 132 mmol/L (137-145)
[2024-10-10 08:00] VITALS: BP 125/69; PULSE 65; PULSE 75; RESP 16; TEMP 36.5; O2SAT 96
[2024-10-10] MEDS: ATORVASTATIN 40 MG TABLET 80 MG PO (09:29)
[2024-10-10] MEDS: APIXABAN 5 MG TABLET PO (09:29)
[2024-10-10] MEDS: MEMANTINE 5 MG TABLET PO (09:29)
[2024-10-10] MEDS: CLOPIDOGREL BISULFATE 75 MG TABLET PO (09:30)
[2024-10-10] MEDS: ASPIRIN 81 MG ENTERIC TABLET PO (09:30)
[2024-10-10 09:35] VITALS: PULSE 75
[2024-10-10] MEDS: METOPROLOL TARTRATE 25 MG TABLET PO (09:35)
--- NOTE | 2024-10-10 11:15 | P.DS_ITS ---
DS: Admitting Diagnosis Discharge Date 10/10/2024 Admitting Diagnosis STEMI DS: Discharge Diagnosis Discharge Diagnosis (1) ST elevation (STEMI) myocardial infarction: Code(s): I21.3 - ST elevation (STEMI) myocardial infarction of unspecified site Status: Acute Assessment and Plan: 1. CAD 2. Inf STEMI s/p PCI of mid-distal RCA, POBA PLV 3. HTN 4. Hyperlipidemia 5. Ischemic cardiomyopathy 6. Suspect delirium, has underlying dementia 7. Acute CVA Plan -Continue DAPT with ASA, Plavix (shifted to Plavix because of addition of eliquis) -continue statin -beta-ofe for rate control -he needs assessment of his left coronary system/left main coronary artery at a later date, will follow up with Discharge -regards to his CVA losartan on hold for now to allow for permissive hypertension. -with regards to his AFib he is back in sinus rhythm. Continue apixaban for anticoagulation -with regards to his cardiomyopathy, we will hold losartan for now. Will keep him on metoprolol tartrate for now. Switch to succinate later. -Delirium has resolved. Neurology consulted. -Anticipate discharge to SNF tomorrow DS: Summary Time Spent with Patient Time attestation: Total time spent providing and/or coordinating discharge services: Exam Const: General: comfortable, no acute distress, alert and awake Orientation/consciousness: patient oriented x3 HENMT: Head: normal to inspection Eyes: General: appearance normal, both eyes and all related structures Pupils: Equal, round and reactive pupils present Neck: Neck: normal visual inspection, supple and no JVD Carotids: normal carotid upstroke Resp: Effort & Inspection: normal respiratory effort Auscultation: clear to auscultation bilaterally Cardio: Rate: regular rate Rhythm: regular rhythm Heart sounds: S1 normal heart sound present, S2 normal heart sound present and no murmurs GI: Auscultation: normal bowel sounds Skin: General skin exam: normal color Neuro: General: patient oriented x3 Cranial nerves: Yes Equal, round and reactive pupils present Extrem: General: normal to inspection Psych: Appearance: grossly normal Mental Status: mental status grossly normal DS: Data Data Completed and Pending Labs on day of discharge: Labs from last 24 hours 10/10/24 10/10/24 10/09/24 04:54 04:53 19:16 WBC 11.5 H RBC 5.06 Hgb 16.2 Hct 47.9 MCV 94.7 MCH 32.0 MCHC 33.8 RDW 13.2 Plt Count 253 MPV 9.7 Immature Gran % (Auto) 0.3 Neut % (Auto) 70.9 Lymph % (Auto) 13.1 L [place] % (Auto) 12.7 H Eos % (Auto) 2.2 Baso % (Auto) 0.8 Lymph # (Auto) 1.51 [place] # (Auto) 1.5 H Eos # (Auto) 0.3 Baso # (Auto) 0.1 Abs Immat Gran (auto) 0.04 H Absolute Neuts (auto) 8.2 H Absolute Nucleated RBC 0.000 Nucleated RBC % 0.0 Sodium 132 L Potassium 3.9 Chloride 99 Carbon Dioxide 29 Anion Gap 4 BUN 42 H Creatinine 1.50 H Estim Creat Clear Calc 42 Estimated GFR 45 L Glucose 102 Calcium 8.4 Magnesium 2.2 Vitamin B12 Methylmalonic Acid Pending Vitamin D 25-Hydroxy 39.1 Folate 10/09/24 06:07 WBC RBC Hgb Hct MCV MCH MCHC RDW Plt Count MPV Immature Gran % (Auto) Neut % (Auto) Lymph % (Auto) [place] % (Auto) Eos % (Auto) Baso % (Auto) Lymph # (Auto) [place] # (Auto) Eos # (Auto) Baso # (Auto) Abs Immat Gran (auto) Absolute Neuts (auto) Absolute Nucleated RBC Nucleated RBC % Sodium Potassium Chloride Carbon Dioxide Anion Gap BUN Creatinine Estim Creat Clear Calc Estimated GFR Glucose Calcium Magnesium Vitamin B12 284.0 Methylmalonic Acid Vitamin D 25-Hydroxy Folate > 20.0 H Discharge Plan Discharge Consulting providers: Galindo Sultana; Tangela Henson; Caterina Costello Discharge Instructions: [facility] [address] [place] [address] DISCHARGE INSTRUCTIONS - POST PCI Activity 1. No driving until . 2. No lifting, pushing or pulling more than 10 pounds for 1 week. 3. No strenuous exercise or activity (including sexual activity) until you are released to do so. 4. May shower but no tub baths or swimming pool for 1 week. Avoid commercial hot tubs. They are too hot. Medications DO NOT STOP YOUR MEDICATIONS ONLY YOUR ASSOCIATE PROFESSOR OF ARCHAEOLOGY CAN STOP THE FOLLOWING MEDICATIONS - PLEASE CALL THE OFFICE WITH QUESTIONS. *Aspirin *Ticagrelor (Brilinta) *Atorvastatin *Losartan *Metoprolol Important Reminders 1. Keep your stent card in your wallet at all times 2. Follow a heart healthy diet paying extra attention to cholesterol and fats. 3. Stay hydrated. 4. If you have chest pain unrelieved by rest or nitroglycerin (if prescribed) call 911 immediately. 5. If you miss one dose of Brilinta (if prescribed) take a tablet at the next time due. If you miss 2 doses take a tablet when you remember and resume at the next time due. *For any other questions please call the office at [phone]. Office hours are 8AM 4:30PM Wednesday through Wednesday. Patient Instructions: Antibiotic Form, Aspirin (By mouth), Losartan (By mouth), Atorvastatin (By mouth), Carvedilol (By mouth), Ticagrelor (By mouth), Heart Attack (GEN), Heart Healthy Diet (GEN), Acute Coronary Syndrome (GEN), Left Heart Catheterization (GEN) Patient Language: Mauritian Stand Alone Forms: General Discharge Information Follow-up/Referrals: Galindo Sultana MD [Physician] - Discharge Medications: New losartan [Cozaar] 50 mg Tablet 50 mg PO DAILY 30 Days Qty: 30 1RF atorvastatin 40 mg Tablet 80 mg PO DAILY 30 Days Qty: 60 11RF carvedilol [Coreg] 12.5 mg Tablet 12.5 mg PO Q12HR 30 Days Qty: 60 1RF aspirin 81 mg Tablet,Delayed Release (Dr/Ec) 81 mg PO QAM 30 Days Qty: 30 11RF Brilinta 90 mg Tablet 90 mg PO Q12HR Qty: 60 11RF Discontinued ibuprofen 800 mg tablet 600 mg PO TID PRN (Reason: Pain) No Action glucosamine-chondroitin [Osteo Bi-Flex] 250-200 mg Tablet 2 tablet PO DAILY omega 6-urc-ydn-fish oil [Fish Oil] 1,000 mg (120 mg-180 mg) Capsule 1 cap PO BID losartan 50 mg tablet 1 tablet PO HS cetirizine [Zyrtec] 10 mg Tablet 10 mg PO HS carboxymethylcellulose sodium [Refresh Liquigel] 1 % drops, liquid gel 1 drp EACH EYE TID Date of admission: 10/05/24 21:15 Primary Care Provider: Anish Vergara Admitting Provider: Galindo Sultana Attending physician on admission: Galindo Sultana Condition: Serious Quality VTE Prophylaxis VTE prophylaxis: mechanical ordered
--- NOTE | 2024-10-10 11:28 | P.PNIM_ITS ---
Progress Note: A&P Assessment and Plan (1) Confusion: Code(s): R41.0 - Disorientation, unspecified Status: Acute Assessment and Plan: He has reportedly had some short-term memory loss for couple of years and I suspect he may have mild cognitive impairment which has yet to be diagnosed. He is probably a bit confused now due to the hospitalization itself and medications that he received. He gives no history to suggest underlying infection. brain MRI revealed 7 mm acute infarct in the left posterior parietal lobe. Extensive chronic microvascular ischemic change and moderate generalized atrophy. Likely due to underlying atrial fibrillation Echo recently performed reviewed Carotid sound unremarkable Continue on anticoagulation as ordered PT OT to see and recommends acute rehab. namenda added for cognitive impairment. (2) Acute ST elevation myocardial infarction (STEMI) of inferior wall: Onset Date: 10/05/24 Code(s): I21.19 - ST elevation (STEMI) myocardial infarction involving other coronary artery of inferior wall Status: Acute Assessment and Plan: Status post angioplasty and drug-eluting stent to the RCA and angioplasty to RPL branch on 10/05/2024. On dual antiplatelet therapy, aspirin, Plavix and beta- ofe per Cardiology. Aspirin Plavix for 4 weeks for 4 weeks per Cardiology (3) Atrial fibrillation with rapid ventricular response: Code(s): I48.91 - Unspecified atrial fibrillation Status: Acute Assessment and Plan: Patient went into rapid atrial fibrillation this afternoon and is asymptomatic. Received 0.5 mg digoxin per Cardiology. He is back to sinus rhythm. Started on anticoagulation with Eliquis. On metoprolol. Remains on sinus rhythm (4) Heart failure with mildly reduced ejection fraction: Code(s): I50.22 - Chronic systolic (congestive) heart failure Status: Acute Assessment and Plan: Echo showed reduced left and right ventricular systolic function with an estimated EF of 40-45% and grade 1 diastolic dysfunction. Appears clinically compensated at this time; management per Cardiology. (5) Hyperlipidemia: Code(s): E78.5 - Hyperlipidemia, unspecified Status: Acute Assessment and Plan: Continue high-intensity statin. AST is up a bit today, likely related to STEMI. (6) Hypertension: Qualifiers: Hypertension type: primary hypertension Qualified Code(s): I10 - Essential (primary) hypertension Code(s): I10 - Essential (primary) hypertension Status: Acute Assessment and Plan: Blood pressures were reviewed and they have been stable. (7) Prediabetes: Code(s): R73.03 - Prediabetes Status: Acute Assessment and Plan: Hemoglobin A1c is 6.0%. Weight loss and dietary changes encouraged. Consider SGLT 2 inhibitor. Plan ROMINA: Creatinine 1.8. Hold losartan And Lasix. Recheck down improved Okay to DC from medical standpoint Subjective Date/time seen: 10/10/24 11:28 Interval history: Working with therapy. No new complaints. Labs reviewed. Discussed with wall mirror department supervisor. Review of Systems Review of Systems: All systems reviewed & are unremarkable except as noted in HPI and below Exam Narrative: General: Well-developed gentleman, in no distress. HEENT: Wearing corrective lenses. PERRL, EOMI. Sclera anicteric. Oral mucosa moist. Neck: Supple. No JVD. Respiratory: Lungs are clear to auscultation bilaterally. Cardiovascular: regular rate and rhythm Gastrointestinal: Abdomen is soft, nontender, and nondistended with positive bowel sounds. Skin: Warm and dry. No rash or lesions on limited exam. Extremities: No cyanosis, clubbing, or edema. Radial and pedal pulses intact. Neurological: Alert and oriented x 3. Cranial nerves 2-12 are grossly intact. Speech is clear. No facial asymmetry. Hand quality assurance supervisor and foot pushes are equal bilaterally. No pronator drift. Normal [id number]. Gait not assessed. Psychiatric: Pleasant and cooperative. Appropriate mood. He is in good spirits. Objective Data Vital Signs Vital Signs: Vital Signs - 24 hr 10/09/24 11:56 10/09/24 12:00 10/09/24 16:00 Temperature 98.3 F Pulse Rate 70 70 63 Respiratory Rate 17 Blood Pressure 101/50 L Pulse Oximetry 95 Oxygen Delivery 10/09/24 17:08 10/09/24 20:00 10/09/24 20:00 Temperature 97.0 F L Pulse Rate 63 98 65 Respiratory Rate 17 18 Blood Pressure 103/69 Pulse Oximetry 96 94 Oxygen Delivery Room Air 10/09/24 20:43 10/10/24 00:00 10/10/24 04:00 Temperature 97.7 F Pulse Rate 98 61 69 Respiratory Rate 18 Blood Pressure 118/64 Pulse Oximetry 94 Oxygen Delivery 10/10/24 08:00 10/10/24 09:06 10/10/24 09:35 Temperature 97.7 F Pulse Rate 65 75 Respiratory Rate 16 Blood Pressure 125/69 Pulse Oximetry 96 Oxygen Delivery Room Air Intake/Output Intake/Output: Intake & Output 10/07/24 10/08/24 10/09/24 10/10/24 23:59 23:59 23:59 23:59 Intake Total 400 055 2383 570 Output Total 1000 450 100 Balance -160 -160 1220 570 Meds/Results Medications: Active Medications Generic Name Dose Route Start Last Admin Trade Name Freq PRN Reason Stop Dose Admin Apixaban 5 mg 10/08/24 09:00 10/10/24 09:29 Apixaban 5 Mg Tablet PO 5 mg Q12HR CLIFF Administration Aspirin 81 mg 10/10/24 09:00 10/10/24 09:30 Aspirin 81 Mg Enteric Tablet PO 81 mg QAM CLIFF Administration Atorvastatin Calcium 80 mg 10/05/24 22:55 10/10/24 09:29 Atorvastatin 40 Mg Tablet PO 80 mg DAILY CLIFF Administration Clopidogrel Bisulfate 75 mg 10/09/24 09:00 10/10/24 09:30 Clopidogrel Bisulfate 75 Mg Tablet PO 75 mg DAILY CLIFF Administration Furosemide 40 mg 10/07/24 09:00 10/08/24 08:57 Furosemide 40 Mg Tablet PO 40 mg DAILY CLIFF Administration Losartan Potassium 12.5 mg 10/08/24 09:00 10/08/24 10:18 Losartan Potassium 12.5 Mg Tablet PO Not Given DAILY CLIFF Memantine 5 mg 10/10/24 09:00 10/10/24 09:29 Memantine 5 Mg Tablet PO 5 mg QAM CLIFF Administration Metoprolol Tartrate 25 mg 10/07/24 18:10 10/10/24 09:35 Metoprolol Tartrate 25 Mg Tablet PO 25 mg Q12HR CLIFF Administration Morphine Sulfate 4 mg 10/05/24 20:33 Morphine Sulfate (*Crx) 4 Mg/Ml Inj IV PUSH ONCE PRN Chest Pain Radiology Results: ITS Impressions Chest X-Ray 10/05/24 20:57 IMPRESSION: 1. Mild atelectasis at left lung base. Head CT 10/07/24 15:30 IMPRESSION: No acute intracranial process. Brain MRI 10/08/24 08:25 IMPRESSION: 7 mm acute infarct in the left posterior parietal lobe. Extensive chronic microvascular ischemic change and moderate generalized atrophy. Carotid Doppler Study 12/16/24 06:37 Impression: No hemodynamically significant stenosis of the bilateral internal carotid arteries. Antegrade flow in the bilateral vertebral arteries. Note: The methodology used is an indirect measurement validated against a direct method (such as the NASCET criteria) that compares diameters at the stenosis to the distal ICA. Labs Labs: Laboratory Results - last 24 hr 10/09/24 10/09/24 10/10/24 06:07 19:16 04:53 WBC RBC Hgb Hct MCV MCH MCHC RDW Plt Count MPV Immature Gran % (Auto) Neut % (Auto) Lymph % (Auto) Yell % (Auto) Eos % (Auto) Baso % (Auto) Lymph # (Auto) Yell # (Auto) Eos # (Auto) Baso # (Auto) Abs Immat Gran (auto) Absolute Neuts (auto) Absolute Nucleated RBC Nucleated RBC % Sodium 132 L Potassium 3.9 Chloride 99 Carbon Dioxide 29 Anion Gap 4 BUN 42 H Creatinine 1.50 H Estim Creat Clear Calc 42 Estimated GFR 45 L Glucose 102 Calcium 8.4 Magnesium 2.2 Vitamin B12 284.0 Vitamin D 25-Hydroxy 39.1 Folate > 20.0 H 10/10/24 04:54 WBC 11.5 H RBC 5.06 Hgb 16.2 Hct 47.9 MCV 94.7 MCH 32.0 MCHC 33.8 RDW 13.2 Plt Count 253 MPV 9.7 Immature Gran % (Auto) 0.3 Neut % (Auto) 70.9 Lymph % (Auto) 13.1 L Yell % (Auto) 12.7 H Eos % (Auto) 2.2 Baso % (Auto) 0.8 Lymph # (Auto) 1.51 Yell # (Auto) 1.5 H Eos # (Auto) 0.3 Baso # (Auto) 0.1 Abs Immat Gran (auto) 0.04 H Absolute Neuts (auto) 8.2 H Absolute Nucleated RBC 0.000 Nucleated RBC % 0.0 Sodium Potassium Chloride Carbon Dioxide Anion Gap BUN Creatinine Estim Creat Clear Calc Estimated GFR Glucose Calcium Magnesium Vitamin B12 Vitamin D 25-Hydroxy Folate
[2024-10-10 12:00] VITALS: PULSE 65
[2024-10-13 06:49] LABS: Methylmalonic Acid 326 nmol/L (85-423)
== END 2024-10-10 15:23 | DRG 321 ==
LOC: ANHED 20:33 → ANHICU 21:30 → ANHIMU 10-06 16:48 → ANH2MED 10-08 12:14
PROVIDERS: Internal Medicine; Internal Medicine Interventional Cardiology; Physician Assistant; Psychiatry & Neurology Neurology; Admitting Provider Internal Medicine Cardiovascular Disease; Emergency Provider Student in an Organized Health Care Education/Training Program; PCP Family Medicine; Visit Provider Nurse Practitioner
PROC: 027035Z Dilation of Coronary Artery, One Artery with Two Drug-eluting Intraluminal Devices, Percutaneous Approach (ICD-10-PCS; 2024-10-05 20:40)
PROC: 027035Z Dilation of Coronary Artery, One Artery with Two Drug-eluting Intraluminal Devices, Percutaneous Approach (ICD-10-PCS; 2024-10-05 20:40)
PROC: 027035Z Dilation of Coronary Artery, One Artery with Two Drug-eluting Intraluminal Devices, Percutaneous Approach (ICD-10-PCS; 2024-10-05 20:40)
PROC: 027035Z Dilation of Coronary Artery, One Artery with Two Drug-eluting Intraluminal Devices, Percutaneous Approach (ICD-10-PCS; CPT 93454; 2024-10-05 20:40)
DX: I21.19 ST elevation (STEMI) myocardial infarction involving other coronary artery of inferior wall (principal); I63.9 Cerebral infarction, unspecified; I97.820 Postprocedural cerebrovascular infarction following cardiac surgery; F03.92 Unspecified dementia, unspecified severity, with psychotic disturbance; F05 Delirium due to known physiological condition; I50.42 Chronic combined systolic (congestive) and diastolic (congestive) heart failure; I11.0 Hypertensive heart disease with heart failure; I48.91 Unspecified atrial fibrillation; H35.30 Unspecified macular degeneration; R73.03 Prediabetes; I25.10 Atherosclerotic heart disease of native coronary artery without angina pectoris; E78.5 Hyperlipidemia, unspecified; Z86.73 Personal history of transient ischemic attack (TIA), and cerebral infarction without residual deficits; I25.5 Ischemic cardiomyopathy; R53.81 Other malaise; R23.3 Spontaneous ecchymoses
CPT/HCPCS: 36415; 70450; 70551; 71045; 80048; 80053; 80061; 81003; 82140; 82306; 82607; 82746; 83036; 83735; 83921; 84439; 84443; 84480; 84484; 85025; 85027; 85610; 85730; 86850; 86900; 86901; 87086; 87641; 92978; 93005; 93454; 93880; 96361; 96374; 96375; 96376; 97161; 97166; 99285; A9270; C1725; C1753; C1769; C1874; C1887; C1894; C8929; C9606; G0269; J0583; J1160; J1644; J1940; J2003; J2250; J2305; J3010; J7030; J7040; Q9957

== ENCOUNTER 2025-07-24 11:03 | Outpatient (CLI) | payer MEDICARE, SELFPAY ==
--- OUTSIDE RECORDS SUMMARY | 2025-07-24 11:41 | XMS_ITS | Clinical Summary ---
Author Organization [facility] Address [address] [place] [address] Care Team Providers Care Tinning Equipment Tender Name Role Phone Anish Vergara MD Primary Care Provider [phone] Allergies No known active allergies Medications cetirizine (ZYRTEC) 10 MG tablet Take 1 tablet (10 mg total) by mouth nightly. Active fish oil (OMEGA-3 FATTY ACID) 1000 MG Cap capsule Take 1 capsule (1,000 mg total) by mouth daily. Active Boswellia-Gluco samine-Vit D (OSTEO BI-FLEX ONE PER DAY OR) Take by mouth daily. Active losartan (COZAAR) 50 MG tablet Take 1 tablet (50 mg total) by mouth nightly. Active difluprednate (DUREZOL) 0.05 % ophthalmic emulsion Place 1 drop into the left eye 4 (four) times daily. 12/30/2022 Active ofloxacin (OCUFLOX) 0.3 % ophthalmic solution Place 1 drop into the right eye 4 (four) times daily. Active ketorolac (ACULAR LS) 0.45 % ophthalmic solution Place 1 drop into the right eye 4 (four) times daily. 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 Gender Identity Not on file Sexual Orientation Not on file Last Filed Vital Signs Vital Sign Reading Time Taken Comments Blood Pressure 120/69 02/01/2023 8:45 AM CDT Pulse 64 02/01/2023 8:45 AM CDT Temperature 36.7 C (98.1 F) 02/01/2023 8:22 AM CDT Respiratory Rate 18 02/01/2023 8:45 AM CDT Oxygen Saturation 92% 02/01/2023 8:45 AM CDT Inhaled Oxygen Concentration - - Weight 104 kg (229 lb 4.5 oz) 02/01/2023 7:38 AM CDT Height 180.3 cm (5' 11) 12/28/2022 5:07 PM AUTOMATIC BRINE MIXER OPERATOR Body Mass Index 31.98 12/28/2022 5:07 PM AUTOMATIC BRINE MIXER OPERATOR Plan of Treatment Health Maintenance Due Date Last Done Comments Pneumococcal Vaccine: 50+ Years (1 of 1 - PCV) 1993 Zoster Vaccines (1 of 2) 1993 Annual Medicare Wellness Visit 2008 RSV Immunization or 60+ Years (1 - 1-dose 75+ series) 2018 DTaP, Tdap and Td Vaccines (2 - Td or Tdap) 11/15/2024 11/15/2014 COVID-19 Vaccine ( season) 2025 08/12/2022, 09/01/2021, 01/24/2021, Additional history exists Meningococcal B Vaccine Aged Out No l onger eligible based on patient's age to complete this topic Meningococcal Vaccine Aged Out No hilaria everton eligible based on patient's age to complete this topic RSV Immunizations Under 20 Months Aged Out No longer eligible based on patient's age to complete this topic Medical Devices Implanted Type Area Heel Scourer Device Identifier Shelf Expiration Date Model / Serial / Lot Drain Glaucoma Thk.9mm Blunt Taper Ahmed Flexible Plate Silicone 27v40te .635mm .305mm Valve Thinner Plate Cannula Aqueous Percolation Hole 25mm - [id number] Implanted:Qty: 1 on 12/18/2022 by He Martino MD at [facility] Eye Left: Eye [employer] 06/09/2023 SAV7 / [id number] / Description:Verified by Iol Rashi Sn60wf - [id number] Implanted:Qty: 1 on 12/18/2022 by He Martino MD at [facility] Lens Left: Eye [employer] na 03/16/2027 [id number] / [id number] / NA Description:Verified by Iol Rashi Sn60wf - [id number] Implanted:Qty: 1 on 02/01/2023 by He Martino MD at [facility] Lens Right: Eye [employer] [id number] 07/21/2027 [id number] / [id number] / N/A Description:Lens verified pe r surgeon and his chart Insurance MEDICARE [facility] Care Teams Tinning Equipment Tender Relationship Specialty Start Date End Date Anish Vergara MD [address] [place] [address] PCP - General FAMILY PRACTICE 12/17/22
--- OUTSIDE RECORDS SUMMARY | 2025-07-24 11:41 | XMS_ITS | Encounter Summary ---
Author Organization [facility] Address [address] [place] [address] Care Team Providers Care Chief Compressor Station Engineer Name Role Phone Bart Freeman MD Primary Care Provider [phone] Anish Vergara MD Primary Care Provide r Encounter Details Date Type Department Care Team (Late st Contact Info) Description 10/08/2024 Orders Only [facility] Health Information Management [address] [place] [phone] Scanning, Provider Social History Tobacco Use Types Packs/Day Years Used Date Smoking Tobacco: Never Smokeless Tobacco: Never Sex and Gender Information Value Date Recorded Sex Assigned at Not on file 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 Gender Identity Not on file Sexual Orientation Not on file documented as of this encounter Plan of Treatment Not on file documented as of this encounter Procedures Procedure Name Priority Date/Time Associated Diagnosis Comments SCAN - RADIOLOGY/IMAGING 10/07/2024 documented in this encounter Results * SCAN - RADIOLOGY/IMAGING (10/07/2024) Anatomical Region Laterality Modality Other us Provider Scanning Edited Result - Final documented in this encounter Visit Diagnoses Not on filedocumented in this encounter Care Teams Chief Compressor Station Engineer Relationship Specialty Start Date End Date Bart Freeman MD PCP - General 10/16/17 11/07/24 Anish Vergara MD [address] [place] [address] PCP - General Family Medicine 11/08/24 documented as of this encounter
--- OUTSIDE RECORDS SUMMARY | 2025-07-24 11:41 | XMS_ITS | Clinical Summary ---
Author Organization [facility] Address [address] [place] [address] Care Team Providers Care Development Assistant Name Role Phone Anish Vergara MD Primary Care Provide r Allergies No known active allergies Medications clopidogreL (PLAVIX) 75 mg tablet Take 1 tablet (75 mg total) by mouth daily 4 Active memantine HCl (MEMANTINE ORAL) Take 10 mg by mouth daily 4 Active tf-7-obu-epa-fis h oil-vit D3 300-1,000-1,000 mg-mg-unit capsule Take by mouth Active glucosamine-krys droitin 250-200 mg tablet Take by mouth Active cetirizine (ZyrTEC) 10 mg tablet Take 1 tablet (10 mg total) by mouth daily Active atorvastatin (LIPITOR) 80 mg tabletIndication s:Coronary artery disease involving big sandy coronary artery of big sandy heart without angina pectoris Take 1 tablet (80 mg total) by mouth daily 30 tablet 11 5 11/08/19 26 Active metoprolol tartrate (LOPRESSOR) 25 mg immediate release tablet TAKE ONE TABLET BY MOUTH TWICE A DAY 60 tablet 3 5 Active Eliquis 5 mg tablet TAKE ONE TABLET BY MOUTH TWICE A DAY 60 tablet 3 5 Active polyvinyl alcohol-povidone (Refresh Classic, PF,) 1.4-0.6 % dropperette Administer into both eyes Active docusate sodium (COLACE) 100 mg capsuleIndicatio ns:constipation Take 1 capsule (100 mg total) by mouth 2 (two) times a day Active ezetimibe (ZETIA) 10 mg tablet Take 1 tablet (10 mg total) by mouth daily 30 tablet 11 06/20/20 26 Active Active Problems Problem Noted Date Diagnosed Date Ischemic cardiomyopathy 11/08/2024 Encounters Date Type Department Care Team Description 06/20/2025 11:15 AM CDT Office Visit [facility] Cardiology [address] [place] [address] Galindo Sultana MD Coronary artery disease involving big sandy coronary artery of big sandy heart without angina pectoris (Primary Dx); History of ST elevation myocardial infarction; Status post angioplasty with stent; Essential hypertension; Paroxysmal atrial fibrillation (HCC); Chronic anticoagulation from Last 3 Months Medical History Medical History Date Comments Atrial fibrillation (HCC) Coronary artery disease Social History Tobacco Use Types Packs/Day Years Used Date Smoking Tobacco: Never Smokeless Tobacco: Never Tobacco Cessation:Counseling Given: Not Answered Sex and Gender Information Value Date Recorded Sex Assigned at Not on file 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 Pt reports the highest fever as 101F Respiratory Rate 16 10/16/2017 10:4 5 AM COUNTY SUPERVISOR Oxygen Saturation 98% 06/20/2025 11: 09 AM CDT Inhaled Oxygen Concentration - - Weight 103.3 kg (227 lb 12.8 oz) 06/20/2025 11:09 AM CDT Height 177.8 cm (5' 10) 06/20/2025 11: 09 AM CDT Body Mass Index 32.69 06/20/2025 11:09 AM CDT Plan of Treatment Health Maintenance Due Date Last Done Comments Depression Screening 1943 Fall Risk Assessment 1945 Hepatitis B Screening 1961 Pneumococcal vaccine 65+ (1 of 2 - PCV) 1962 Zoster Vaccine (1 of 2) 1993 Well Visit 65+ 2008 DTaP/Tdap/Td Vaccine (2 - Td or Tdap) 11/15/2024 11/15/2014 Covid-19 Vaccine (6 - 2024-2 6 season) 2025 11/16/2023, 08/12/2022, 09/01/2021, Additional history exists Influenza Vaccine (#1) 2025 3, 08/12/2022, 08/04/2021, Additional history exists Procedures Procedure Name Priority Date/Time Associated Diagnosis Comments POCT LIPID PANEL Routine 06/20/2025 12:1 6 PM CDT Coronary artery disease involving big sandy coronary artery of big sandy heart without angina pectoris from Last 3 Months Results * (ABNORMAL) POCT lipid panel (06/20/2025 12:16 PM CDT) Cholesterol, POC 129 <200 MG/DL HDL, POC 33(A) >=40 mg/dL Triglycerides, POC 123 <=149 mg/dL LDL Cholesterol POC 71 <=129 mg/dL Chol/HDL Ratio, POC 2.1 NONE Non-HDL Cholesterol, POC 96 NONE mg/dL Cholesterol Total, POC 129 30 - 199 mg/dL Capillary blood 06/20/2025 1 2:16 PM CDT Galindo Sultana MD POINT OF CARE TEST ORDERABLES Fi nal Result from Last 3 Months Insurance MEDICARE [facility] MEDICARE [facility] Care Teams Development Assistant Relationship Specialty Start Date End Date Anish Vergara MD [address] [place] [address] PCP - General Family Medicine 11/08/24
[2025-07-24 13:03] LABS: Vitamin B12 317.0 pg/mL (239-931)
== END 2025-07-24 11:04 | disposition home or self-care (01) ==
PROVIDERS: PCP Family Medicine; Visit Provider Psychiatry & Neurology Neurology
DX: G30.9 Alzheimer's disease, unspecified (principal); F02.80 Dementia in other diseases classified elsewhere, unspecified severity, without behavioral disturbance, psychotic disturbance, mood disturbance, and anxiety; I63.9 Cerebral infarction, unspecified; I25.10 Atherosclerotic heart disease of native coronary artery without angina pectoris; I48.91 Unspecified atrial fibrillation
CPT/HCPCS: 36415; 82607; 82746